=== PATIENT | female | born 1990 | race Caucasian/White ===

== ENCOUNTER 2017-04-13 21:44 | Inpatient (IN) | payer BC ==
[2017-04-13] MEDS ORDERED: Sodium Chloride 0.9% 10 ML Syringe FLUSH PRN (22:14)
[2017-04-13] MEDS ORDERED: Lactated Ringers 1,000 ML IV SCH (22:15)
[2017-04-13] MEDS ORDERED: Oxytocin/Lactated Ringers 10 UNIT/1,000 ML BAG IV SCH (22:15)
[2017-04-13] MEDS ORDERED: Oxytocin/Lactated Ringers 10 UNIT/1,000 ML BAG IV ONE (22:36)
[2017-04-13] MEDS ORDERED: Lidocaine 1% 50 ML MDV ONE (22:36)
--- NOTE | 2017-04-13 23:04 | PCM.LDHP ---
L&D History of Present Illness - General Date of Service: 04/13/17 Admit Problem/Dx: Patient Status Order with Admit Dx/Problem 04/13/17 22:14 Patient Status [ADT] Routine Admission Diagnosis/Problem Admission Diagnosis/Problem Source of Information: Patient History Limitations: Reports: No Limitations - History of Present Illness Introduction:: Patient is a 26 y/o who presented to L&D for labor. 5-6 cm on admission. No other issues. 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: 1 LMP (Approximate): Social & Family History - Tobacco Use Smoking Status *Q: Never Smoker Second Hand Smoke Exposure: No - Alcohol Use Alcohol Use History: No - Recreational Drug Use Recreational Drug Use: No H&P Review of Systems - Review of Systems: Review Of Systems: See Below General: Reports: No Symptoms Pulmonary: Reports: No Symptoms Cardiovascular: Reports: No Symptoms Gastrointestinal: Reports: No Symptoms Genitourinary: Reports: No Symptoms Musculoskeletal: Reports: No Symptoms L&D Exam - Exam Exam: See Below - Vital Signs Weight: 75.296 kg - OB Specific Contraction Intensity: Moderate Movement: Active Heart Tones: Present Heart Tones per Min: 145 Heart Rate (FHR) Variability: Moderate (6-25 bmp) Presentation: Vertex - Pfeiffer Score Pfeiffer Score Cervix Position: Anterior Pfeiffer Score Consistency: Soft Pfeiffer Score Effacement: >80% Pfeiffer Score Dilation: > 5 cm Pfeiffer Score 's Station: -1 ,0 Pfeiffer Score Total: 12 - Exam General: Alert, Oriented, Cooperative Abdomen: Soft Genitourinary: Normal external exam Extremities: Normal Inspection Skin: Warm, Dry, Intact - Patient Data Lab Results Last 24 hrs: Laboratory Results - last 24 hr 04/13/17 Range/Units 22:30 WBC 16.30 H (3.98-10.04) K/mm3 RBC 3.98 (3.98-5.22) M/mm3 Hgb 12.4 (11.2-15.7) gm/L Hct 35.8 (34.1-44.9) % MCV 89.9 (79.4-94.8) fl MCH 31.2 (25.6-32.2) pg MCHC 34.6 (32.2-35.5) g/dl RDW Std Deviation 41.7 (36.4-46.3) fL Plt Count 214 (182-369) K/mm3 MPV 11.4 (9.4-12.3) fl Result Diagrams: 04/13/17 22:30 - Problem List (1) 39 weeks gestation of SNOMED Code(s): 08958021 ICD Code: Z3A.39 - 39 WEEKS GESTATION OF Status: Acute Current Visit: Yes (2) GBS (group B Streptococcus carrier), +RV culture, currently SNOMED Code(s): 05677407, 035073489 ICD Code: O99.820 - STREPTOCOCCUS B CARRIER STATE COMPLICATING Status: Acute Current Visit: Yes (3) Normal labor SNOMED Code(s): 26142579 ICD Code: O80 - ENCOUNTER FOR FULL-TERM UNCOMPLICATED DELIVERY; Z37.9 - OUTCOME OF DELIVERY, UNSPECIFIED Status: Acute Current Visit: Yes Problem List Initiated/Reviewed/Updated: Yes Orders Last 24hrs: Active Orders 24 hr Category Date Time Status Patient Status [ADT] Routine ADT 04/13/17 22:14 Active Activity as Tolerated [RC] PFP Care 04/13/17 22:14 Active Communication Order [RC] ASDIRECTED Care 04/13/17 22:14 Active Heart Tones [RC] ASDIRECTED Care 04/13/17 22:14 Active Notify Provider [RC] PFP Care 04/13/17 22:14 Active Notify Provider [RC] PRN Care 04/13/17 22:14 Active Peripheral IV Care [RC] . DIRECTED Care 04/13/17 22:14 Active Vital Signs [RC] PER UNIT ROUTINE Care 04/13/17 22:14 Active TYPE AND SCREEN [BBK] Stat Lab 04/13/17 22:30 Received Lactated Ringers [Ringers, Lactated] 1,000 ml Med 04/13/17 22:15 Active IV ASDIRECTED Oxytocin/Lactated Ringers [Pitocin in LR 10 Units/1,000 Med 04/13/17 22:15 Active ML] 10 unit in 1,000 ml IV TITRATE Sodium Chloride 0.9% [Saline Flush] Med 04/13/17 22:14 Active 10 ml FLUSH ASDIRECTED PRN Vancomycin [Vancocin] 1 gm Med 04/13/17 22:00 Active Sodium Chloride 0.9% [Normal Saline] 250 ml IV Q12H Electronic Heart Tones Ext w TOCO [WOMSER] Ot 04/13/17 22:14 Ordered Routine Electronic Heart Tones Internal [WOMSER] Per Unit Ot 04/13/17 22:14 Ordered Routine Peripheral IV Insertion Adult [OM.PC] Routine Ot 04/13/17 22:14 Ordered Resuscitation Status Routine Resus Stat 04/13/17 22:14 Ordered Medication Orders Lactated Ringer's (Ringers, Lactated) 1,000 mls @ 100 mls/hr IV ASDIRECTED JANUSZ Oxytocin/Lactated Ringer's (Pitocin In Lr 10 Units/1,000 Ml) 10 unit in 1,000 mls @ 500 mls/hr IV TITRATE JANUSZ PRN Reason: Protocol Vancomycin HCl 1 gm/ Sodium (Chloride) 250 mls @ 250 mls/hr IV Q12H JANUSZ Sodium Chloride (Saline Flush) 10 ml FLUSH ASDIRECTED PRN PRN Reason: Keep Vein Open Assessment/Plan Comment:: 26 y/o at 39 2/7 wks who presented in labor - shortly after presenting patient complete. I presented in time for delivery. See separate delivery note. Patient was GBS positive. Vancomycin infusion started, but not completed.
--- NOTE | 2017-04-13 23:10 | PCM.DEL ---
L & D Note - General Info Date of Service: 04/13/17 - Delivery Note Labor: spontaneous Delivery Outcome: Livebirth Delivery Method: Spontaneous Vaginal Delivery Delivery Mode: Spontaneous Presentation: Right Occiput Anterior (TRE) Nuchal Cord: None Anesthesia Type: None Amniotic Fluid Description: Clear Episiotomy Type: None Laceration: 1st degree (hemostatic and so not repaired) Placenta: intact, spontaneous Cord: 3 vessels Estimated Blood Loss: 300 Resuscitation Needed: Yes : Suctioned, Bulb Syringe, Stimulated, Warmed, [place] Used, Warmer Used Delivery Comments (Free Text/Narrative):: Patient completed with ROM right before I presented. With maternal pushing effort head delivered from an TRE presentation. No nuchal cord present. With gentle downward traction the shoulders and body delivered. placed on maternal abdomen. Cord clamped and cut. Cord blood obtained. Placenta allowed time to separate and then expelled. Inspection of the perineum showed a small 1st degree laceration which was hemostatic and so not repaired. - Patient Data Weight - most recent: 75.296 kg Lab Results last 24 hrs: Laboratory Results - last 24 hr 04/13/17 Range/Units 22:30 WBC 16.30 H (3.98-10.04) K/mm3 RBC 3.98 (3.98-5.22) M/mm3 Hgb 12.4 (11.2-15.7) gm/L Hct 35.8 (34.1-44.9) % MCV 89.9 (79.4-94.8) fl MCH 31.2 (25.6-32.2) pg MCHC 34.6 (32.2-35.5) g/dl RDW Std Deviation 41.7 (36.4-46.3) fL Plt Count 214 (182-369) K/mm3 MPV 11.4 (9.4-12.3) fl Med Orders - Current: Current Medications Lactated Ringer's (Ringers, Lactated) 1,000 mls @ 100 mls/hr IV ASDIRECTED JANUSZ Oxytocin/Lactated Ringer's (Pitocin In Lr 10 Units/1,000 Ml) 10 unit in 1,000 mls @ 500 mls/hr IV TITRATE JANUSZ PRN Reason: Protocol Vancomycin HCl 1 gm/ Sodium (Chloride) 250 mls @ 250 mls/hr IV Q12H JANUSZ Sodium Chloride (Saline Flush) 10 ml FLUSH ASDIRECTED PRN PRN Reason: Keep Vein Open Discontinued Medications Oxytocin/Lactated Ringer's (Pitocin In Lr 10 Units/1,000 Ml) Confirm Administered Dose 10 unit in 1,000 mls @ as directed IV .STK-MED ONE Stop: 04/13/17 22:37 Lidocaine HCl (Xylocaine 1%) Confirm Administered Dose 50 ml .ROUTE .STK-MED ONE Stop: 04/13/17 22:37 - Problem List & Annotations (1) 39 weeks gestation of SNOMED Code(s): 32092195 Code(s): Z3A.39 - 39 WEEKS GESTATION OF Status: Acute Current Visit: Yes (2) GBS (group B Streptococcus carrier), +RV culture, currently SNOMED Code(s): 30995254, 161622991 Code(s): O99.820 - STREPTOCOCCUS B CARRIER STATE COMPLICATING Status: Acute Current Visit: Yes (3) Normal labor SNOMED Code(s): 30464248 Code(s): O80 - ENCOUNTER FOR FULL-TERM UNCOMPLICATED DELIVERY; Z37.9 - OUTCOME OF DELIVERY, UNSPECIFIED Status: Acute Current Visit: Yes - Problem List Review Problem List Initiated/Reviewed/Updated: Yes - My Orders Last 24 Hours: My Active Orders 04/13/17 22:00 Vancomycin [Vancocin] 1 gm Sodium Chloride 0.9% [Normal Saline] 250 ml IV Q12H 04/13/17 22:14 Patient Status [ADT] Routine Activity as Tolerated [RC] PFP Communication Order [RC] ASDIRECTED Heart Tones [RC] ASDIRECTED Notify Provider [RC] PFP Notify Provider [RC] PRN Peripheral IV Care [RC] . DIRECTED Vital Signs [RC] PER UNIT ROUTINE Sodium Chloride 0.9% [Saline Flush] 10 ml FLUSH ASDIRECTED PRN Electronic Heart Tones Ext w TOCO [WOMSER] Routine Electronic Heart Tones Internal [WOMSER] Per Unit Routine Peripheral IV Insertion Adult [OM.PC] Routine Resuscitation Status Routine 04/13/17 22:15 Lactated Ringers [Ringers, Lactated] 1,000 ml IV ASDIRECTED Oxytocin/Lactated Ringers [Pitocin in LR 10 Units/1,000 ML] 10 unit in 1,000 ml IV TITRATE 04/13/17 22:30 TYPE AND SCREEN [BBK] Stat 04/13/17 23:05 Patient Status Manage Transfer [TRANSFER] Routine - Assessment Assessment:: 26 y/o G2 now P2 PPD#0 from at 39 2/7 wks - Plan Plan:: * Routine cares * Encourage breast feeding * Discharge home in 2 days
[2017-04-13] MEDS ORDERED: Acetaminophen 325 MG Tab PO PRN (23:24)
[2017-04-13] MEDS ORDERED: Lanolin 100% Cream 7 GM Tube TOP PRN (23:24)
[2017-04-13] MEDS ORDERED: Benzocaine/Menthol 20%-0.5% Spray 56 GM Canister TOP PRN (23:24)
[2017-04-13] MEDS ORDERED: Witch Hazel Medicated Pads 100/Jar TOP PRN (23:24)
[2017-04-13] MEDS ORDERED: Docusate Sodium 100 MG Cap PO PRN (23:24)
[2017-04-14] MEDS: Ibuprofen 600 MG Tab PO PRN ×4 (00:41→20:37)
[2017-04-14] MEDS ORDERED: Oxytocin/Lactated Ringers 10 UNIT/1,000 ML BAG IV SCH (00:45)
--- NOTE | 2017-04-14 07:23 | PCM.PNPP ---
- General Info Date of Service: 04/14/17 Functional Status: Reports: pain controlled, tolerating diet, ambulating, urinating - Review of Systems General: Reports: No Symptoms Pulmonary: Reports: no symptoms Cardiovascular: Reports: No Symptoms Gastrointestinal: Reports: No symptoms Genitourinary: Reports: no symptoms Musculoskeletal: Reports: no symptoms - Patient Data Vital Signs - most recent: Last Vital Signs Temp 36.8 C 04/14/17 03:31 Pulse 72 04/14/17 03:31 Resp 16 04/14/17 03:31 BP 111/76 04/14/17 03:31 Pulse Ox 100 04/14/17 03:31 Weight - most recent: 75.296 kg Lab Results - last 24 hrs: Laboratory Results - last 24 hr 04/13/17 04/13/17 04/14/17 Range/Units 22:30 22:30 03:40 WBC 16.30 H (3.98-10.04) K/mm3 RBC 3.98 (3.98-5.22) M/mm3 Hgb 12.4 (11.2-15.7) gm/L Hct 35.8 (34.1-44.9) % MCV 89.9 (79.4-94.8) fl MCH 31.2 (25.6-32.2) pg MCHC 34.6 (32.2-35.5) g/dl RDW Std Deviation 41.7 (36.4-46.3) fL Plt Count 214 (182-369) K/mm3 MPV 11.4 (9.4-12.3) fl Blood Type O NEGATIVE O NEGATIVE Gel Antibody Screen Positive Positive Screen 0 ros/5 flds - neg RhIG Candidate? Yes Rhogam Indicated Yes, baby rh pos H Med Orders - Current: Current Medications Acetaminophen (Tylenol) 650 mg PO Q4H PRN PRN Reason: mild pain or fever Benzocaine/Menthol (Dermoplast Pain Relief [place]) 0 gm TOP ASDIRECTED PRN PRN Reason: Perineal Comfort Measure Last Admin: 04/14/17 00:39 Dose: 1 can Docusate Sodium (Colace) 100 mg PO BID PRN PRN Reason: Constipation Emollient Ointment (Lansinoh Hpa) 0 gm TOP ASDIRECTED PRN PRN Reason: Sore Nipples Oxytocin/Lactated Ringer's (Pitocin In Lr 10 Units/1,000 Ml) 10 unit in 1,000 mls @ 500 mls/hr IV ASDIRECTED [facility] Last Admin: 04/13/17 22:45 Dose: 500 mls/hr Ibuprofen (Motrin) 600 mg PO Q6H PRN PRN Reason: Mild pain or fever Last Admin: 04/14/17 00:41 Dose: 600 mg Witch Umu (Tucks) 1 pad TOP ASDIRECTED PRN PRN Reason: Hemorrhoid pain Last Admin: 04/14/17 00:39 Dose: 1 container Discontinued Medications Lactated Ringer's (Ringers, Lactated) 1,000 mls @ 100 mls/hr IV ASDIRECTED [facility] Last Admin: 04/13/17 22:25 Dose: 999 mls/hr Oxytocin/Lactated Ringer's (Pitocin In Lr 10 Units/1,000 Ml) 10 unit in 1,000 mls @ 500 mls/hr IV TITRATE [facility] PRN Reason: Protocol Vancomycin HCl 1 gm/ Sodium (Chloride) 250 mls @ 250 mls/hr IV Q12H [facility] Last Admin: 04/13/17 22:35 Dose: 250 mls/hr Oxytocin/Lactated Ringer's (Pitocin In Lr 10 Units/1,000 Ml) Confirm Administered Dose 10 unit in 1,000 mls @ as directed IV .STK-MED ONE Stop: 04/13/17 22:37 Last Admin: 04/14/17 06:23 Dose: Not Given Lidocaine HCl (Xylocaine 1%) Confirm Administered Dose 50 ml .ROUTE .STK-MED ONE Stop: 04/13/17 22:37 Last Admin: 04/14/17 06:23 Dose: Not Given Sodium Chloride (Saline Flush) 10 ml FLUSH ASDIRECTED PRN PRN Reason: Keep Vein Open - Infant Interaction Disposition, : to Nursery Infant Interaction: Not Applicable Feeding: Attempted ; Nursed Fair/Poor Support Person: - Recovery Exam Fundal Tone: Firm Fundal Level: 1 Fingerbreadths Below Umbilicus Fundal Placement: Midline Lochia Amount: Small, Moderate Perineum Description: Edematous Episiotomy/Laceration: Approximated Bladder Status: Voiding Urinary Elimination: Voided - Exam General: alert, oriented, cooperative Abdomen: soft, no tenderness Extremities: no edema Skin: warm, dry, intact - Problem List & Annotations (1) 39 weeks gestation of SNOMED Code(s): 47177530 Code(s): Z3A.39 - 39 WEEKS GESTATION OF Status: Acute Current Visit: Yes (2) GBS (group B Streptococcus carrier), +RV culture, currently SNOMED Code(s): 30221614, 841463687 Code(s): O99.820 - STREPTOCOCCUS B CARRIER STATE COMPLICATING Status: Acute Current Visit: Yes (3) Normal labor SNOMED Code(s): 48141597 Code(s): O80 - ENCOUNTER FOR FULL-TERM UNCOMPLICATED DELIVERY; Z37.9 - OUTCOME OF DELIVERY, UNSPECIFIED Status: Acute Current Visit: Yes (4) Vaginal delivery SNOMED Code(s): 341686500 Code(s): O80 - ENCOUNTER FOR FULL-TERM UNCOMPLICATED DELIVERY Status: Acute Current Visit: Yes - Problem List Review Problem List Initiated/Reviewed/Updated: Yes - My Orders Last 24 Hours: My Active Orders 04/13/17 22:14 Activity as Tolerated [RC] PFP Communication Order [RC] ASDIRECTED Heart Tones [RC] ASDIRECTED Notify Provider [RC] PFP Notify Provider [RC] PRN Peripheral IV Care [RC] . DIRECTED Vital Signs [RC] PER UNIT ROUTINE Resuscitation Status Routine 04/13/17 22:30 ANTIBODY IDENTIFICATION [BBK] Stat TYPE AND SCREEN [BBK] Stat 04/13/17 23:24 Activity as Tolerated [RC] PER UNIT ROUTINE Vital Signs [RC] 04,12,20 Acetaminophen [Tylenol] 650 mg PO Q4H PRN Benzocaine/Menthol [Dermoplast Pain Relief [place]] See Dose Instructions TOP ASDIRECTED PRN Docusate Sodium [Colace] 100 mg PO BID PRN Ibuprofen [Motrin] 600 mg PO Q6H PRN Lanolin [Lansinoh HPA] See Dose Instructions TOP ASDIRECTED PRN Witch Umu [Tucks] 1 pad TOP ASDIRECTED PRN Assess Lochia [WOMSER] Per Unit Routine Assess Uterine Involution [WOMSER] Per Unit Routine Breast Pump [WOMSER] Per Unit Routine Heat Therapy [OM.PC] PRN Ice Therapy [OM.PC] Per Unit Routine Perineal Care [OM.PC] Per Unit Routine Peripheral IV Discontinue [OM.PC] Routine Sitz Bath [OM.PC] Per Unit Routine 04/14/17 00:45 Oxytocin/Lactated Ringers [Pitocin in LR 10 Units/1,000 ML] 10 unit in 1,000 ml IV ASDIRECTED 04/14/17 03:40 SCREEN [BBK] Routine RH IMMUNE GLOBULIN [BBK] Routine RHOGAM, [RHIG WORKUP, ] [BBK] Routine 04/14/17 23:24 Heat Therapy [OM.PC] PRN - Assessment Assessment:: 26 y/o G2 now P2 PPD#1 from at 39 2/7 wks - Plan Plan:: * Routine cares * Encourage breast feeding * Discharge home today vs tomorrow
[2017-04-14] MEDS: Levothyroxine 112 MCG Tab PO SCH (12:00)
[2017-04-15] MEDS: Levothyroxine 112 MCG Tab PO SCH (06:19)
[2017-04-15] MEDS: Ibuprofen 600 MG Tab PO PRN (06:19)
--- NOTE | 2017-04-15 07:08 | PCM.DCSUM1 ---
Discharge Summary - Discharge Data Discharge Date: 04/15/17 Discharge Disposition: Home, Self-Care 01 Condition: Good - Discharge Diagnosis/Problem(s) (1) 39 weeks gestation of SNOMED Code(s): 04258260 ICD Code: Z3A.39 - 39 WEEKS GESTATION OF Status: Acute Current Visit: Yes (2) GBS (group B Streptococcus carrier), +RV culture, currently SNOMED Code(s): 08957802, 569170155 ICD Code: O99.820 - STREPTOCOCCUS B CARRIER STATE COMPLICATING Status: Acute Current Visit: Yes (3) Normal labor SNOMED Code(s): 32608948 ICD Code: O80 - ENCOUNTER FOR FULL-TERM UNCOMPLICATED DELIVERY; Z37.9 - OUTCOME OF DELIVERY, UNSPECIFIED Status: Acute Current Visit: Yes (4) Vaginal delivery SNOMED Code(s): 517836586 ICD Code: O80 - ENCOUNTER FOR FULL-TERM UNCOMPLICATED DELIVERY Status: Acute Current Visit: Yes (5) Rh negative state in antepartum period SNOMED Code(s): 139019242, 830520623 ICD Code: O09.899 - SUPERVISION OF OTHER HIGH RISK PREGNANCIES, UNSP TRIMESTER Status: Acute Current Visit: Yes Qualifiers: Trimester: third trimester Qualified Code(s): O09.893 - Supervision of other high risk pregnancies, third trimester - Patient Summary/Data Complications: None Consults: None Recommended Follow-up Testing/Procedures: Follow up in 5-6 weeks for check Hospital Course: 26-year-old woman presented at 39-2/7 weeks gestation in active labor. She progressed rapidly and delivered within 45 minutes of initial presentation to the hospital. See delivery note for full details. she did well and was discharged home on day #2. - Patient Instructions Diet: Regular Diet as Tolerated Activity: As Tolerated Activity, Other: Pelvic Rest for 6 weeks Driving: May Drive Today Showering/Bathing: May Shower Showering/Bathing, Other: May Bathe Notify Provider of: Fever, Increased Pain, Swelling and Redness, Drainage, Nausea and/or Vomiting - Discharge Plan Home Medications: Home Meds Pnv with Ca,No.71/Iron/Fa [ Vitamin Tablet] 1 tab PO DAILY 04/19/15 [ History] Ibuprofen [IJD: Ibuprofen] 600 mg PO Q6H PRN #0 tablet 04/14/17 [Rx] Levothyroxine Sodium 112 mcg PO DAILY 04/14/17 [History] Patient Handouts: Mastitis, [id number], and Mastitis, Vaginal Delivery, Care After, Breast Pumping Tips, [id number] Referrals: Kami Felder MD [Physician] - (5-6 weeks for check ) - Discharge Summary/Plan Comment DC Time >30 min.: No - Patient Data Vitals - Most Recent: Last Vital Signs Temp 36.9 C 04/15/17 04:27 Pulse 82 04/15/17 04:00 Resp 16 04/15/17 04:27 BP 116/82 04/15/17 04:27 Pulse Ox 99 04/15/17 04:00 Weight - Most Recent: 75.296 kg Lab Results - Last 24 hrs: Laboratory Results - last 24 hr 04/14/17 Range/Units 03:40 Blood Type O NEGATIVE Gel Antibody Screen Positive Screen 0 ros/5 flds - neg RhIG Candidate? Yes Rhogam Indicated Yes, baby rh pos H Med Orders - Current: Current Medications Acetaminophen (Tylenol) 650 mg PO Q4H PRN PRN Reason: mild pain or fever Last Admin: 04/14/17 09:50 Dose: 650 mg Benzocaine/Menthol (Dermoplast Pain Relief [place]) 0 gm TOP ASDIRECTED PRN PRN Reason: Perineal Comfort Measure Last Admin: 04/14/17 00:39 Dose: 1 can Docusate Sodium (Colace) 100 mg PO BID PRN PRN Reason: Constipation Last Admin: 04/15/17 06:19 Dose: 100 mg Emollient Ointment (Lansinoh Hpa) 0 gm TOP ASDIRECTED PRN PRN Reason: Sore Nipples Oxytocin/Lactated Ringer's (Pitocin In Lr 10 Units/1,000 Ml) 10 unit in 1,000 mls @ 500 mls/hr IV ASDIRECTED JANUSZ Last Admin: 04/13/17 22:45 Dose: 500 mls/hr Ibuprofen (Motrin) 600 mg PO Q6H PRN PRN Reason: Mild pain or fever Last Admin: 04/15/17 06:19 Dose: 600 mg Levothyroxine Sodium (Levothyroxine) 112 mcg PO ACBREAKFAST JANUSZ Last Admin: 04/15/17 06:19 Dose: 112 mcg Colin Sanz (Tucks) 1 pad TOP ASDIRECTED PRN PRN Reason: Hemorrhoid pain Last Admin: 04/14/17 00:39 Dose: 1 container Discontinued Medications Lactated Ringer's (Ringers, Lactated) 1,000 mls @ 100 mls/hr IV ASDIRECTED JANUSZ Last Admin: 04/13/17 22:25 Dose: 999 mls/hr Oxytocin/Lactated Ringer's (Pitocin In Lr 10 Units/1,000 Ml) 10 unit in 1,000 mls @ 500 mls/hr IV TITRATE JANUSZ PRN Reason: Protocol Vancomycin HCl 1 gm/ Sodium (Chloride) 250 mls @ 250 mls/hr IV Q12H [facility] Last Admin: 04/13/17 22:35 Dose: 250 mls/hr Oxytocin/Lactated Ringer's (Pitocin In Lr 10 Units/1,000 Ml) Confirm Administered Dose 10 unit in 1,000 mls @ as directed IV .STK-MED ONE Stop: 04/13/17 22:37 Last Admin: 04/14/17 06:23 Dose: Not Given Lidocaine HCl (Xylocaine 1%) Confirm Administered Dose 50 ml .ROUTE .STK-MED ONE Stop: 04/13/17 22:37 Last Admin: 04/14/17 06:23 Dose: Not Given Sodium Chloride (Saline Flush) 10 ml FLUSH ASDIRECTED PRN PRN Reason: Keep Vein Open *Q Meaningful Use (DIS) - VTE *Q VTE Criteria *Q: - Stroke *Q Stroke Criteria *Q: - AMI *Q AMI Criteria *Q:
--- NOTE | 2017-04-15 07:08 | PCM.PNPP ---
- General Info Date of Service: 04/15/17 Functional Status: Reports: pain controlled, tolerating diet, ambulating, urinating - Review of Systems General: Reports: No Symptoms Pulmonary: Reports: no symptoms Cardiovascular: Reports: No Symptoms Gastrointestinal: Reports: No symptoms Genitourinary: Reports: no symptoms Musculoskeletal: Reports: no symptoms - Patient Data Vital Signs - most recent: Last Vital Signs Temp 36.9 C 04/15/17 04:27 Pulse 82 04/15/17 04:00 Resp 16 04/15/17 04:27 BP 116/82 04/15/17 04:27 Pulse Ox 99 04/15/17 04:00 Weight - most recent: 75.296 kg Lab Results - last 24 hrs: Laboratory Results - last 24 hr 04/14/17 Range/Units 03:40 Blood Type O NEGATIVE Gel Antibody Screen Positive Screen 0 ros/5 flds - neg RhIG Candidate? Yes Rhogam Indicated Yes, baby rh pos H Med Orders - Current: Current Medications Acetaminophen (Tylenol) 650 mg PO Q4H PRN PRN Reason: mild pain or fever Last Admin: 04/14/17 09:50 Dose: 650 mg Benzocaine/Menthol (Dermoplast Pain Relief [place]) 0 gm TOP ASDIRECTED PRN PRN Reason: Perineal Comfort Measure Last Admin: 04/14/17 00:39 Dose: 1 can Docusate Sodium (Colace) 100 mg PO BID PRN PRN Reason: Constipation Last Admin: 04/15/17 06:19 Dose: 100 mg Emollient Ointment (Lansinoh Hpa) 0 gm TOP ASDIRECTED PRN PRN Reason: Sore Nipples Oxytocin/Lactated Ringer's (Pitocin In Lr 10 Units/1,000 Ml) 10 unit in 1,000 mls @ 500 mls/hr IV ASDIRECTED JANUSZ Last Admin: 04/13/17 22:45 Dose: 500 mls/hr Ibuprofen (Motrin) 600 mg PO Q6H PRN PRN Reason: Mild pain or fever Last Admin: 04/15/17 06:19 Dose: 600 mg Levothyroxine Sodium (Levothyroxine) 112 mcg PO ACBREAKFAST JANUSZ Last Admin: 04/15/17 06:19 Dose: 112 mcg Witch Umu (Tucks) 1 pad TOP ASDIRECTED PRN PRN Reason: Hemorrhoid pain Last Admin: 04/14/17 00:39 Dose: 1 container Discontinued Medications Lactated Ringer's (Ringers, Lactated) 1,000 mls @ 100 mls/hr IV ASDIRECTED JANUSZ Last Admin: 04/13/17 22:25 Dose: 999 mls/hr Oxytocin/Lactated Ringer's (Pitocin In Lr 10 Units/1,000 Ml) 10 unit in 1,000 mls @ 500 mls/hr IV TITRATE JANUSZ PRN Reason: Protocol Vancomycin HCl 1 gm/ Sodium (Chloride) 250 mls @ 250 mls/hr IV Q12H [facility] Last Admin: 04/13/17 22:35 Dose: 250 mls/hr Oxytocin/Lactated Ringer's (Pitocin In Lr 10 Units/1,000 Ml) Confirm Administered Dose 10 unit in 1,000 mls @ as directed IV .STK-MED ONE Stop: 04/13/17 22:37 Last Admin: 04/14/17 06:23 Dose: Not Given Lidocaine HCl (Xylocaine 1%) Confirm Administered Dose 50 ml .ROUTE .STK-MED ONE Stop: 04/13/17 22:37 Last Admin: 04/14/17 06:23 Dose: Not Given Sodium Chloride (Saline Flush) 10 ml FLUSH ASDIRECTED PRN PRN Reason: Keep Vein Open - Interaction Infant Disposition, : to Nursery Interaction: Not Applicable Infant Feeding: Breastfed Infant; Nursed Well Support Person: - Recovery Exam Fundal Tone: Firm Fundal Level: 2 Fingerbreadths Below Umbilicus Fundal Placement: Midline Lochia Amount: Small Lochia Color: Rubra/Red Perineum Description: Intact, Minimal Bruising/Swelling Episiotomy/Laceration: Approximated Bladder Status: Voiding Urinary Elimination: Voided - Exam General: alert, oriented, cooperative Abdomen: soft, no tenderness Extremities: no edema Skin: warm, dry, intact - Problem List & Annotations (1) 39 weeks gestation of SNOMED Code(s): 40616584 Code(s): Z3A.39 - 39 WEEKS GESTATION OF Status: Acute Current Visit: Yes (2) GBS (group B Streptococcus carrier), +RV culture, currently SNOMED Code(s): 58444067, 047703372 Code(s): O99.820 - STREPTOCOCCUS B CARRIER STATE COMPLICATING Status: Acute Current Visit: Yes (3) Normal labor SNOMED Code(s): 27926913 Code(s): O80 - ENCOUNTER FOR FULL-TERM UNCOMPLICATED DELIVERY; Z37.9 - OUTCOME OF DELIVERY, UNSPECIFIED Status: Acute Current Visit: Yes (4) Vaginal delivery SNOMED Code(s): 036826705 Code(s): O80 - ENCOUNTER FOR FULL-TERM UNCOMPLICATED DELIVERY Status: Acute Current Visit: Yes (5) Rh negative state in antepartum period SNOMED Code(s): 797931215, 971498825 Code(s): O09.899 - SUPERVISION OF OTHER HIGH RISK PREGNANCIES, UNSP TRIMESTER Status: Acute Current Visit: Yes Qualifiers: Trimester: third trimester Qualified Code(s): O09.893 - Supervision of other high risk pregnancies, third trimester - Problem List Review Problem List Initiated/Reviewed/Updated: Yes - Assessment Assessment:: 26 y/o G2 now P2 PPD#2 from at 39 2/7 wks - Plan Plan:: * Routine cares * Encourage breast feeding * Rh negative, baby Rh positive. Received Rhogam yesterday * Discharge home today
[2017-04-15 13:24] VITALS: BP 107/76
== END 2017-04-15 13:59 | disposition home or self-care (01) | DRG 560 ==
LOC: JD.OBCHECK 21:44 → JD.OB 21:49 → JD.OBCHECK 22:14 → OBSVTOIN 22:45 → JD.OB 22:45
PROVIDERS: ADMIT Obstetrics & Gynecology; ATTEND Obstetrics & Gynecology
PROC: 10E0XZZ Delivery of Products of Conception, External Approach (ICD-10-PCS; principal; 2017-04-13)
PROC: 0HQ9XZZ Repair Perineum Skin, External Approach (ICD-10-PCS; 2017-04-13)
DX: O99.824 Streptococcus B carrier state complicating childbirth (principal); O70.0 First degree perineal laceration during delivery; O42.02 Full-term premature rupture of membranes, onset of labor within 24 hours of rupture; Z3A.39 39 weeks gestation of pregnancy; Z37.0 Single live birth; Z88.0 Allergy status to penicillin
CPT/HCPCS: 36415; 85027; 85461; 86850; 86870; 86900; 86901; A9270-GY; J2590; J2790; J3370; J7050; J7120

== ENCOUNTER 2020-04-22 05:40 | Inpatient (IN) | payer BC ==
[2020-04-22] MEDS ORDERED: ceFAZolin/Dextrose,Iso-Osmotic 2 GM/50 ML Duplex Bag IV ONE (11:28)
[2020-04-22] MEDS ORDERED: Lactated Ringers 1,000 ML IV SCH (11:31)
[2020-04-22] MEDS ORDERED: ceFAZolin 2 GM in Premix Bag 1 BAG IV ONE (11:31)
[2020-04-22] MEDS ORDERED: Sodium Chloride 0.9% 10 ML Syringe FLUSH PRN (11:31)
[2020-04-22] MEDS ORDERED: Nalbuphine 10 MG/ML Syringe IVPUSH PRN (11:31)
[2020-04-22] MEDS ORDERED: Oxytocin/Lactated Ringers 10 UNIT/1,000 ML BAG IV SCH ×2 (11:31→19:36)
--- NOTE | 2020-04-22 11:37 | PCM.LDHP ---
<Merary Irwin - Last Filed: 04/22/20 11:30> L&D History of Present Illness - General Date of Service: 04/22/20 Admit Problem/Dx: Patient Status Order with Admit Dx/Problem 04/22/20 05:51 Patient Status [ADT] Routine Admission Diagnosis/Problem Admission Diagnosis/Problem Gestational hypertension Source of Information: Patient History Limitations: Reports: No Limitations - History of Present Illness Introduction:: Radha Guzman is a 29-year-old at estimated gestational age of 38 weeks and 0 days, with an CHANELLE of 05/06/2020, who is admitted to the labor and delivery unit for gestational hypertension. Present Illness Comments:: Radha Guzman is a 29-year-old at estimated gestational age of 38 weeks and 0 days, with an CHANELLE of 05/06/2020, who is admitted to the labor and delivery unit for gestational hypertension. She began having contractions around 3:00 am today; they progressed from 7 minutes apart to 5 minutes apart, which prompted her to present to labor and delivery. Upon arrival, she was noted to have elevated blood pressure readings at 139/86 and 139/101, which has ultimately caused her to be admitted for delivery of the fetus due to gestational hypertension. She is allergic to penicillins. She has a past medical history of h ypothyroidism, for which she takes 137 mcg of Levothyroxine (she did take her dose this morning). She also states she has a past medical history of migraines. OBGYN History: This is her fourth . She has two live children, both born at 39 weeks; one born in 2014 (with an epidural) and one born in 2016 (no anesthesia) by [facility]. She had one spontaneous at a gestational age of 14 weeks in April 2019. She had normal menarche at age 13 and her cycles last 28 days. Course: Her LMP was 07/31/2019. She started her at a weight of 133.2 and her weight on 04/19/2020 was 157, for a total weight gain during of 23.8 pounds. Fundal heights and heart rates were appropriate throughout . Ultrasound performed on 12/20/2019 showed normal anatomy, appropriate development, and posterior placenta. Anti-D immune globulin was given on 02/10/2020. She did have occasional [place] contractions starting in February 2020. Vital signs remained stable until 04/19/2020, when her blood pressure reading at an clinic OB check was 132/82. The plan going forward was to monitor her blood pressure closely. She presented to L&D in the early hours of this morning for contractions that she felt were becoming more regular, and she was noted to have elevated blood pressures today, which is why it was ultimately decided that she be admitted and delivery today 04/22/2020 for gestational hypertension. She denies visual disturbances, blurry vision, and epigastric pain. She does have a headache behind her left eye that she rates as a 2/10 on the pain scale, which started around 3:00 am this morning. She states this has been able to be relieved with Tylenol. TSH was monitored throughout , and levothyroxine was titrated ap propriately. Initial labs on 09/29/2019: Blood type: O negative Antibody screen: negative Hemoglobin: 13.7 g/dl Hematocrit: 40.3% Platelet count: 231 10*3/uL Rubella immune RPR nonreactive Hepatitis B surface antigen negative HIV negative Chlamydia and gonorrhea negative Second trimester labs on 02/10/2020 Hemoglobin: 12.5 g/dl Hematocrit: 37.3% Platelet count: 178 10*3/uL Fasting glucose: 93 04/06/2020: Group B strep: POSITIVE - Related Data Allergies/Adverse Reactions: Allergies Allergy/AdvReac Type Severity Reaction Status Date / Time Penicillins Allergy Hives Verified 04/22/20 09:24 Home Medications: Home Meds Levothyroxine [Synthroid] 100 mcg PO ACBREAKFAST 05/06/19 [History] No122/Iron/Folic Acid [ Multi Tablet] 1 each PO DAILY 05/06/19 [History] Past Medical History - Past Health History Medical/Surgical History: Denies Medical/Surgical History THIRD COOK History: Reports: , Spontaneous Neurological History: Reports: Migraines Endocrine/Metabolic History: Reports: Hypothyroidism - Infectious Disease History Infectious Disease History: Reports: Chicken Pox - Past Surgical History HEENT Surgical History: Reports: Oral Surgery Social & Family History - Family History Cardiac: Reports: Hypertension (Father) Endocrine/Metabolic: Reports: Hypothyroidism (Maternal grandmother) - Tobacco Use Smoking Status *Q: Never Smoker - Caffeine Use Caffeine Use: Reports: None - Alcohol Use Alcohol Use History: No - Recreational Drug Use Recreational Drug Use: No H&P Review of Systems - Review of Systems: Review Of Systems: See Below General: Reports: No Symptoms HEENT: Reports: Headaches (History of migraines; currently reports a small headache behind the left eye at a 2/10 pain scale that is relieved with Tylenol.) Pulmonary: Reports: No Symptoms Cardiovascular: Reports: No Symptoms Gastrointestinal: Reports: No Symptoms Genitourinary: Reports: No Symptoms Musculoskeletal: Reports: No Symptoms Skin: Reports: No Symptoms Psychiatric: Reports: No Symptoms Neurological: Reports: No Symptoms Hematologic/Lymphatic: Reports: No Symptoms Immunologic: Reports: No Symptoms L&D Exam - Exam Exam: See Below - Vital Signs Vital Signs: Last Vital Signs Temp 97.7 F 04/22/20 06:25 Pulse 71 04/22/20 06:25 Resp 14 04/22/20 06:25 BP 127/89 04/22/20 06:25 Pulse Ox 98 04/22/20 06:25 Weight: 71.214 kg - OB Specific Contraction Duration (sec): 15-20 seconds Contraction Frequency (min): Every 5-10 minutes Contraction Intensity: Mild to Moderate Movement: Active Heart Tones: Present Heart Tones per Min: 135 Heart Rate (FHR) Variability: Moderate (6-25 bmp) Estimated Weight: 6 pounds 3 ounces - Exam General: Alert, Oriented, Cooperative HEENT: Conjunctiva Clear, EACs Clear, EOMI, Hearing Intact, Mucosa Moist & [place], Normal Nasal Septum, Posterior Pharynx Clear, Pupils Equal, Pupils Reactive Neck: Supple, Trachea Midline, +2 Carotid Pulse wo Bruit, Full Range of Motion, Other (Thyroid nonelarged without nodules.) Lungs: Clear to Auscultation, Normal Respiratory Effort Cardiovascular: Regular Rate, Regular Rhythm, Normal S1, Normal S2 GI/Abdominal Exam: Normal Bowel Sounds, Non-Tender, No Abnormal Bruit, No Mass Rectal Exam: Deferred Back Exam: Normal Inspection, Full Range of Motion, Other (No CVA tenderness.) Extremities: Normal Inspection, Normal Range of Motion, Non-Tender, No Pedal Edema, Normal Capillary Refill Skin: Warm, Dry, Intact Neurological: Cranial Nerves Intact Psychiatric: Alert, Normal Affect, Normal Mood - Patient Data Lab Results Last 24 hrs: Laboratory Results - last 24 hr 04/22/20 04/22/20 04/22/20 Range/Units 06:34 06:50 06:50 WBC 10.50 H (3.98-10.04) K/mm3 RBC 4.26 (3.98-5.22) M/mm3 Hgb 13.2 (11.2-15.7) gm/dl Hct 38.9 (34.1-44.9) % MCV 91.3 (79.4-94.8) fl MCH 31.0 (25.6-32.2) pg MCHC 33.9 (32.2-35.5) g/dl RDW Std Deviation 41.9 (36.4-46.3) fL Plt Count 192 (182-369) K/mm3 MPV 12.1 (9.4-12.3) fl Neut % (Auto) 70.3 (34.0-71.1) % Lymph % (Auto) 21.0 (19.3-51.7) % [place] % (Auto) 6.7 (4.7-12.5) % Eos % (Auto) 1.4 (0.7-5.8) Baso % (Auto) 0.4 (0.1-1.2) % Neut # (Auto) 7.38 H (1.56-6.13) K/mm3 Lymph # (Auto) 2.21 (1.18-3.74) K/mm3 Bullock # (Auto) 0.70 H (0.24-0.36) K/mm3 Eos # (Auto) 0.15 (0.04-0.36) K/mm3 Baso # (Auto) 0.04 (0.01-0.08) K/mm3 Sodium 137 (136-145) mEq/L Potassium 3.6 (3.5-5.1) mEq/L Chloride 103 (98-107) mEq/L Carbon Dioxide 22 (21-32) mEq/L Anion Gap 15.6 H (5-15) BUN 10 (7-18) mg/dL Creatinine 0.8 (0.55-1.02) mg/dL Est Cr Clr Drug Dosing 104.67 mL/min Estimated GFR (MDRD) > 60 (>60) mL/min BUN/Creatinine Ratio 12.5 L (14-18) Glucose 74 (74-106) mg/dL Calcium 8.9 (8.5-10.1) mg/dL Total Bilirubin 1.0 (0.2-1.0) mg/dL AST 22 (15-37) U/L ALT 19 (14-59) U/L Alkaline Phosphatase 121 H (46-116) U/L Total Protein 7.0 (6.4-8.2) g/dl Albumin 3.0 L (3.4-5.0) g/dl Globulin 4.0 gm/dL Albumin/Globulin Ratio 0.8 L (1-2) Ur Random Creatinine < 13.0 L (30.0-125.0) mg/dL U Random Total Protein < 6.0 (0.0-11.8) mg/dL Protein/Creatinin Ratio TNP Result Diagrams: 04/22/20 06:50 04/22/20 06:50 Problem List Initiated/Reviewed/Updated: Yes Orders Last 24hrs: Active Orders 24 hr Category Date Time Status Patient Status Manage Transfer [TRANSFER] Routine ADT 04/22/20 11:11 Active Patient Status [ADT] Routine ADT 04/22/20 05:51 Active Non Stress Test [RC] PER UNIT ROUTINE Care 04/22/20 05:51 Active Vital Signs [RC] PER UNIT ROUTINE Care 04/22/20 05:51 Active Regular Diet [DIET] Diet 04/22/20 Breakfast Active Resuscitation Status Routine Resus Stat 04/22/20 05:51 Ordered Assessment/Plan Comment:: Radha Guzman is a 29-year-old at estimated gestational age of 38 weeks and 0 days, with an CHANELLE of 05/06/2020, who is admitted to the labor and delivery unit for gestational hypertension. Admit to labor and delivery: Darien Allen MD Diagnosis: ; Gestational hypertension; Hypothyroidism Stable condition Blood pressures will be taken every 30 minutes. Notify physician if blood pressure is > 160 systolic or > 100 diastolic. May ambulate as tolerated. Regular diet Allergies: Penicillins Start IV and begin infusing lactated ringers and Ancef. Medications: Start IV Ancef due to Group B positive status. 137 mcg PO of Levothyroxine/day (she has taken her home medication for today's dose on 04/22/2020). At this time, the patient is leaning towards Dr. Allen rupturing her membranes around 1600 HRS today to progress with labor. She will alert her nurse if she would like to proceed with IV Pitocin, but at this time she would like to try ru pturing her membranes and will then see how her contractions progress. At this time she does not desire an epidural at any point during labor. YONY Cueva-S 1221 HRS 04/22/2020 <Darien Allen - Last Filed: 04/22/20 16:25> L&D History of Present Illness - General Admit Problem/Dx: Patient Status Order with Admit Dx/Problem 04/22/20 11:31 Patient Status [ADT] Routine Admission Diagnosis/Problem Admission Diagnosis/Problem Gestational hypertension L&D Exam - Vital Signs Vital Signs: Last Vital Signs Temp 36.5 C 04/22/20 06:25 Pulse 71 04/22/20 06:25 Resp 14 04/22/20 06:25 BP 127/89 04/22/20 06:25 Pulse Ox 98 04/22/20 06:25 - Patient Data Lab Results Last 24 hrs: Laboratory Results - last 24 hr 04/22/20 04/22/20 04/22/20 Range/Units 06:34 06:50 06:50 WBC 10.50 H (3.98-10.04) K/mm3 RBC 4.26 (3.98-5.22) M/mm3 Hgb 13.2 (11.2-15.7) gm/dl Hct 38.9 (34.1-44.9) % MCV 91.3 (79.4-94.8) fl MCH 31.0 (25.6-32.2) pg MCHC 33.9 (32.2-35.5) g/dl RDW Std Deviation 41.9 (36.4-46.3) fL Plt Count 192 (182-369) K/mm3 MPV 12.1 (9.4-12.3) fl Neut % (Auto) 70.3 (34.0-71.1) % Lymph % (Auto) 21.0 (19.3-51.7) % [place] % (Auto) 6.7 (4.7-12.5) % Eos % (Auto) 1.4 (0.7-5.8) Baso % (Auto) 0.4 (0.1-1.2) % Neut # (Auto) 7.38 H (1.56-6.13) K/mm3 Lymph # (Auto) 2.21 (1.18-3.74) K/mm3 [place] # (Auto) 0.70 H (0.24-0.36) K/mm3 Eos # (Auto) 0.15 (0.04-0.36) K/mm3 Baso # (Auto) 0.04 (0.01-0.08) K/mm3 Sodium 137 (136-145) mEq/L Potassium 3.6 (3.5-5.1) mEq/L Chloride 103 (98-107) mEq/L Carbon Dioxide 22 (21-32) mEq/L Anion Gap 15.6 H (5-15) BUN 10 (7-18) mg/dL Creatinine 0.8 (0.55-1.02) mg/dL Est Cr Clr Drug Dosing 104.67 mL/min Estimated GFR (MDRD) > 60 (>60) mL/min BUN/Creatinine Ratio 12.5 L (14-18) Glucose 74 (74-106) mg/dL Calcium 8.9 (8.5-10.1) mg/dL Total Bilirubin 1.0 (0.2-1.0) mg/dL AST 22 (15-37) U/L ALT 19 (14-59) U/L Alkaline Phosphatase 121 H (46-116) U/L Total Protein 7.0 (6.4-8.2) g/dl Albumin 3.0 L (3.4-5.0) g/dl Globulin 4.0 gm/dL Albumin/Globulin Ratio 0.8 L (1-2) Ur Random Creatinine < 13.0 L (30.0-125.0) mg/dL U Random Total Protein < 6.0 (0.0-11.8) mg/dL Protein/Creatinin Ratio TNP SARS-CoV-2 RNA (RT-PCR) (NEGATIVE) 04/22/20 Range/Units 12:15 WBC (3.98-10.04) K/mm3 RBC (3.98-5.22) M/mm3 Hgb (11.2-15.7) gm/dl Hct (34.1-44.9) % MCV (79.4-94.8) fl MCH (25.6-32.2) pg MCHC (32.2-35.5) g/dl RDW Std Deviation (36.4-46.3) fL Plt Count (182-369) K/mm3 MPV (9.4-12.3) fl Neut % (Auto) (34.0-71.1) % Lymph % (Auto) (19.3-51.7) % [place] % (Auto) (4.7-12.5) % Eos % (Auto) (0.7-5.8) Baso % (Auto) (0.1-1.2) % Neut # (Auto) (1.56-6.13) K/mm3 Lymph # (Auto) (1.18-3.74) K/mm3 [place] # (Auto) (0.24-0.36) K/mm3 Eos # (Auto) (0.04-0.36) K/mm3 Baso # (Auto) (0.01-0.08) K/mm3 Sodium (136-145) mEq/L Potassium (3.5-5.1) mEq/L Chloride (98-107) mEq/L Carbon Dioxide (21-32) mEq/L Anion Gap (5-15) BUN (7-18) mg/dL Creatinine (0.55-1.02) mg/dL Est Cr Clr Drug Dosing mL/min Estimated GFR (MDRD) (>60) mL/min BUN/Creatinine Ratio (14-18) Glucose (74-106) mg/dL Calcium (8.5-10.1) mg/dL Total Bilirubin (0.2-1.0) mg/dL AST (15-37) U/L ALT (14-59) U/L Alkaline Phosphatase (46-116) U/L Total Protein (6.4-8.2) g/dl Albumin (3.4-5.0) g/dl Globulin gm/dL Albumin/Globulin Ratio (1-2) Ur Random Creatinine (30.0-125.0) mg/dL U Random Total Protein (0.0-11.8) mg/dL Protein/Creatinin Ratio SARS-CoV-2 RNA (RT-PCR) Negative (NEGATIVE) Result Diagrams: 04/22/20 06:50 04/22/20 06:50 - Problem List (1) 38 weeks gestation of SNOMED Code(s): 11746813 ICD Code: Z3A.38 - 38 WEEKS GESTATION OF Status: Acute Current Visit: Yes (2) Hypothyroidism affecting SNOMED Code(s): 060546290 ICD Code: O99.280 - ENDO, NUTRITIONAL AND METAB DISEASES COMP PREG, UNSP TRI; E03.9 - HYPOTHYROIDISM, UNSPECIFIED Status: Acute Current Visit: Yes (3) GBS (group B Streptococcus carrier), +RV culture, currently SNOMED Code(s): 3923022289017, 357409642, 0887424757747 ICD Code: O99.820 - STREPTOCOCCUS B CARRIER STATE COMPLICATING Status: Acute Current Visit: No (4) Rh negative state in antepartum period SNOMED Code(s): 867985247 ICD Code: O09.899 - SUPERVISION OF OTHER HIGH RISK PREGNANCIES, UNSP TRIMESTER Status: Acute Current Visit: No Problem List Initiated/Reviewed/Updated: Yes Orders Last 24hrs: Active Orders 24 hr Category Date Time Status Patient Status [ADT] Routine ADT 04/22/20 11:31 Active Activity as Tolerated [RC] PFP Care 04/22/20 11:31 Active Communication Order [RC] ASDIRECTED Care 04/22/20 11:31 Active Heart Tones [RC] ASDIRECTED Care 04/22/20 11:31 Active Non Stress Test [RC] PER UNIT ROUTINE Care 04/22/20 05:51 Active Notify Provider Vital Signs [RC] PRN Care 04/22/20 11:31 Active Notify Provider [RC] PFP Care 04/22/20 11:31 Active Notify Provider [RC] PRN Care 04/22/20 11:31 Active Peripheral IV Care [RC] . DIRECTED Care 04/22/20 11:31 Active Pump Management, Intrathecal [RC] ASDIRECTED Care 04/22/20 11:31 Active Vital Signs [RC] PER UNIT ROUTINE Care 04/22/20 11:31 Active Regular Diet [DIET] Diet 04/22/20 Breakfast Active RAPID PLASMA REAGIN,RPR [CHEM] Routine Lab 04/22/20 06:58 Received Acetaminophen [Tylenol] Med 04/22/20 15:43 Active 650 mg PO Q6H PRN Lactated Ringers [Ringers, Lactated] 1,000 ml Med 04/22/20 11:31 Active IV ASDIRECTED Levothyroxine Med 04/23/20 06:00 Ordered 150 mcg PO ACBREAKFAST Nalbuphine [Nubain] Med 04/22/20 11:31 Active 10 mg IVPUSH Q2H PRN Oxytocin/Lactated Ringers [Pitocin in LR 10 Units/1,000 Med 04/22/20 11:31 Active ML] 10 unit in 1,000 ml IV .CONTINUOUS Sodium Chloride 0.9% [Saline Flush] Med 04/22/20 11:31 Active 10 ml FLUSH ASDIRECTED PRN ceFAZolin [Ancef] 1 gm Med 04/22/20 20:00 Active Premix Bag 1 bag IV Q8H Electronic Heart Tones Ext w TOCO [WOMSER] Oth 04/22/20 11:31 Ordered Routine Electronic Heart Tones Internal [WOMSER] Per Unit Ot 04/22/20 11:31 Ordered Routine Peripheral IV Insertion Adult [OM.PC] Routine Ot 04/22/20 11:31 Ordered Resuscitation Status Routine Resus Stat 04/22/20 05:51 Ordered Medication Orders Acetaminophen (Tylenol) 650 mg PO Q6H PRN PRN Reason: Pain Last Admin: 04/22/20 16:16 Dose: 650 mg Documented by: [place] Lactated Ringer's (Ringers, Lactated) 1,000 mls @ 100 mls/hr IV ASDIRECTED JANUSZ Cefazolin Sodium/Dextrose 1 gm (/ Premix) 50 mls @ 100 mls/hr IV Q8H JANUSZ Oxytocin/Lactated Ringer's (Pitocin In Lr 10 Units/1,000 Ml) 10 unit in 1,000 mls @ 100 mls/hr IV .CONTINUOUS JANUSZ Levothyroxine Sodium (Levothyroxine) 150 mcg PO ACBREAKFAST JANUSZ Nalbuphine HCl (Nubain) 10 mg IVPUSH Q2H PRN PRN Reason: Pain Sodium Chloride (Saline Flush) 10 ml FLUSH ASDIRECTED PRN PRN Reason: Keep Vein Open Assessment/Plan Comment:: I have seen and evaluated the patient with the PA student and agree with her assessment and plan. Patient with gestational hypertension and should have induction of labor due to her mild range blood pressures. Close monitoring of blood pressures for severe range blood pressures which may need treatment. Patient is GBS positive and has a history of a penicillin allergy that is very mild with a rash as a child. We will use Ancef for GBS prophylaxis. We will plan to delay rupture of membranes until she has had 4 hours of the Ancef antibiotic given. Darien Allen MD 4:25 PM 04/22/2020
[2020-04-22] MEDS ORDERED: Acetaminophen 325 MG Tab PO PRN (15:43)
--- NOTE | 2020-04-22 16:31 | PCM.PNLD ---
Labor Progress Note - VS & Meds Vital Signs: Last Vital Signs Temp 36.5 C 04/22/20 06:25 Pulse 71 04/22/20 06:25 Resp 14 04/22/20 06:25 BP 127/89 04/22/20 06:25 Pulse Ox 98 04/22/20 06:25 Active Medications: Current Medications Acetaminophen (Tylenol) 650 mg PO Q6H PRN PRN Reason: Pain Last Admin: 04/22/20 16:16 Dose: 650 mg Documented by: Lactated Ringer's (Ringers, Lactated) 1,000 mls @ 100 mls/hr IV ASDIRECTED JANUSZ Cefazolin Sodium/Dextrose 1 gm (/ Premix) 50 mls @ 100 mls/hr IV Q8H JANUSZ Oxytocin/Lactated Ringer's (Pitocin In Lr 10 Units/1,000 Ml) 10 unit in 1,000 mls @ 100 mls/hr IV .CONTINUOUS JANUSZ Levothyroxine Sodium (Levothyroxine) 150 mcg PO ACBREAKFAST JANUSZ Nalbuphine HCl (Nubain) 10 mg IVPUSH Q2H PRN PRN Reason: Pain Sodium Chloride (Saline Flush) 10 ml FLUSH ASDIRECTED PRN PRN Reason: Keep Vein Open Discontinued Medications Cefazolin Sodium/Dextrose (Ancef) Confirm Administered Dose 2 gm IV .STK-MED ONE Stop: 04/22/20 11:29 Last Admin: 04/22/20 12:31 Dose: Not Given Documented by: Cefazolin Sodium/Dextrose 2 gm (/ Premix) 50 mls @ 100 mls/hr IV ONETIME ONE Stop: 04/22/20 12:00 Last Admin: 04/22/20 11:34 Dose: 100 mls/hr Documented by: - Uterine Contractions Uterine Monitoring Mode: External [place] Contraction Frequency (min): 5-15+ Contraction Duration (sec): 45-90 Contraction Intensity: Moderate to Strong - Monitoring Monitor Mode: Doppler/Auscultation Heart Rate (FHR) Baseline: 135 Heart Rate (FHR) Per Doppler: 135 Heart Rate (FHR) Variability: Moderate (6-25 bmp) Accelerations: Present, 15x15 Decelerations: Variable, Intermittent (<50% x 20 min) Strip Review: Category II - Vaginal Exam Dilation (cm): 6 Effacement (Percent): 90 Station: -1 Cervical Position: Anterior Sterile Vaginal Exam Performed By: Darien Allen Vaginal Exam Comment: Artificial rupture membranes performed with [place] with return of small amount of clear fluid. Mother and tolerated procedure without difficulty. - Labor Progress (Free Text) Labor Progress: Patient with cervical dilation since last exam from 4 cm on initial presentation to 6 cm at this time. Patient has made good progress despite irregular contraction pattern. Artificial rupture membranes performed with return of small amount of clear fluid. Mother and tolerated without difficulty Patient continues to have mild range blood pressures when she is awake. Blood pressures are in normal range when she is resting. Continue close monitoring of vital signs and for severe features of preeclampsia Continue Ancef for GBS prophylaxis We will plan to monitor contraction pattern for the next several hours to see if they will increase in frequency now with her membranes ruptured. If she does not have a regular contraction pattern I would recommend for her to start on Pitocin for augmentation of labor Anticipate vaginal delivery unless otherwise indicated Darien Allen MD 4:30 PM 04/22/2020
[2020-04-22] MEDS ORDERED: Oxytocin/Lactated Ringers 10 UNIT/1,000 ML BAG IV ONE (18:38)
[2020-04-22] MEDS ORDERED: Witch Hazel Medicated Pads 40/Jar TOP PRN (19:36)
[2020-04-22] MEDS ORDERED: Benzocaine/Menthol 20%-0.5% Spray 56 GM Canister TOP PRN (19:36)
[2020-04-22] MEDS ORDERED: Hydrocortisone Acetate 25 MG Supp RECTAL PRN (19:36)
[2020-04-22] MEDS ORDERED: Magnesium Hydroxide 400 MG/5 ML Susp 30 ML Cup PO PRN (19:36)
--- NOTE | 2020-04-22 19:39 | PCM.DEL ---
L & D Note - General Info Date of Service: 04/22/20 Mother's Due Date: 05/06/20 - Delivery Note Labor: Spontaneous, Augmented by ARM Delivery Outcome: Livebirth Delivery Method: Spontaneous Vaginal Delivery-Single Presentation: Right Occiput Anterior (TRE) Nuchal Cord: None Prep: Povidone-Iodine (Betadine Anesthesia Type: None Amniotic Fluid Description: Clear Episiotomy Type: None Laceration: Labial (right labial abrasion, hemostatic and not repaired) Placenta: Intact, Spontaneous Cord: 3 Vessels, True Knot Estimated Blood Loss: 200 Resuscitation Needed: No : Bulb Syringe, Stimulated, Warmed, Terry Used Provider: Darien Allen Score 1 min: 8 Score 5 min: 9 Second Stage Interventions: Reports: Pushing, Stirrups/Leg Supports Delivery Comments (Free Text/Narrative):: Stage I: Radha Guzman was admitted for medically indicated induction of labor in the setting of gestational hypertension. On admission her cervix was dilated to 4 cm which was unchanged from late last week. She was GBS positive and was started on Ancef for GBS prophylaxis. She received 1 total dose prior to delivery. When she first presented she had elevated blood pressures into the 130s to 140s/90s to low 100s that were persistent over the course of 4 hours. Decision was made to proceed with induction of labor. She was sheryl irregularly which is what brought her in for evaluation. She was monitored with her contractions and was making appropriate change without any augmentation. She had artificial rupture of membranes with return of a small amount of clear fluid. She progressed to complete and pushing. Stage II: On 04/22/2020 she had a normal vaginal delivery of a live male infant at 18:52. Apgars of 8 & 9. Measurements not available at the time of the note. There was no nuchal cord. There was a true knot present in the cord at time of delivery. was delivered in TRE position. The cord was doubly clamped and cut by father the . was placed on mother's abdomen. Stage III: She had a spontaneous delivery of an intact placenta in Amandeep presentation. Three vessel cord. She was given pitocin and fundal massage. She had a right labial abrasion that was hemostatic and not repaired. Mom and baby were stable to recovery. EBL of 200 mL. Darien Allen MD 7:36 PM 04/22/2020 - General Info Date of Service: 04/22/20 - Patient Data Vitals - Most Recent: Last Vital Signs Temp 36.5 C 04/22/20 06:25 Pulse 71 04/22/20 06:25 Resp 14 04/22/20 06:25 BP 127/89 04/22/20 06:25 Pulse Ox 98 04/22/20 06:25 Weight - Most Recent: 71.214 kg I&O - Last 24 Hours: Intake & Output 04/22/20 04/22/20 04/22/20 06:59 14:59 22:59 Intake Total 100 Balance 100 Lab Results Last 24 Hours: Laboratory Results - last 24 hr 04/22/20 04/22/20 04/22/20 Range/Units 06:34 06:50 06:50 WBC 10.50 H (3.98-10.04) K/mm3 RBC 4.26 (3.98-5.22) M/mm3 Hgb 13.2 (11.2-15.7) gm/dl Hct 38.9 (34.1-44.9) % MCV 91.3 (79.4-94.8) fl MCH 31.0 (25.6-32.2) pg MCHC 33.9 (32.2-35.5) g/dl RDW Std Deviation 41.9 (36.4-46.3) fL Plt Count 192 (182-369) K/mm3 MPV 12.1 (9.4-12.3) fl Neut % (Auto) 70.3 (34.0-71.1) % Lymph % (Auto) 21.0 (19.3-51.7) % [place] % (Auto) 6.7 (4.7-12.5) % Eos % (Auto) 1.4 (0.7-5.8) Baso % (Auto) 0.4 (0.1-1.2) % Neut # (Auto) 7.38 H (1.56-6.13) K/mm3 Lymph # (Auto) 2.21 (1.18-3.74) K/mm3 [place] # (Auto) 0.70 H (0.24-0.36) K/mm3 Eos # (Auto) 0.15 (0.04-0.36) K/mm3 Baso # (Auto) 0.04 (0.01-0.08) K/mm3 Sodium 137 (136-145) mEq/L Potassium 3.6 (3.5-5.1) mEq/L Chloride 103 (98-107) mEq/L Carbon Dioxide 22 (21-32) mEq/L Anion Gap 15.6 H (5-15) BUN 10 (7-18) mg/dL Creatinine 0.8 (0.55-1.02) mg/dL Est Cr Clr Drug Dosing 104.67 mL/min Estimated GFR (MDRD) > 60 (>60) mL/min BUN/Creatinine Ratio 12.5 L (14-18) Glucose 74 (74-106) mg/dL Calcium 8.9 (8.5-10.1) mg/dL Total Bilirubin 1.0 (0.2-1.0) mg/dL AST 22 (15-37) U/L ALT 19 (14-59) U/L Alkaline Phosphatase 121 H (46-116) U/L Total Protein 7.0 (6.4-8.2) g/dl Albumin 3.0 L (3.4-5.0) g/dl Globulin 4.0 gm/dL Albumin/Globulin Ratio 0.8 L (1-2) Ur Random Creatinine < 13.0 L (30.0-125.0) mg/dL U Random Total Protein < 6.0 (0.0-11.8) mg/dL Protein/Creatinin Ratio TNP SARS-CoV-2 RNA (RT-PCR) (NEGATIVE) 04/22/20 Range/Units 12:15 WBC (3.98-10.04) K/mm3 RBC (3.98-5.22) M/mm3 Hgb (11.2-15.7) gm/dl Hct (34.1-44.9) % MCV (79.4-94.8) fl MCH (25.6-32.2) pg MCHC (32.2-35.5) g/dl RDW Std Deviation (36.4-46.3) fL Plt Count (182-369) K/mm3 MPV (9.4-12.3) fl Neut % (Auto) (34.0-71.1) % Lymph % (Auto) (19.3-51.7) % [place] % (Auto) (4.7-12.5) % Eos % (Auto) (0.7-5.8) Baso % (Auto) (0.1-1.2) % Neut # (Auto) (1.56-6.13) K/mm3 Lymph # (Auto) (1.18-3.74) K/mm3 [place] # (Auto) (0.24-0.36) K/mm3 Eos # (Auto) (0.04-0.36) K/mm3 Baso # (Auto) (0.01-0.08) K/mm3 Sodium (136-145) mEq/L Potassium (3.5-5.1) mEq/L Chloride (98-107) mEq/L Carbon Dioxide (21-32) mEq/L Anion Gap (5-15) BUN (7-18) mg/dL Creatinine (0.55-1.02) mg/dL Est Cr Clr Drug Dosing mL/min Estimated GFR (MDRD) (>60) mL/min BUN/Creatinine Ratio (14-18) Glucose (74-106) mg/dL Calcium (8.5-10.1) mg/dL Total Bilirubin (0.2-1.0) mg/dL AST (15-37) U/L ALT (14-59) U/L Alkaline Phosphatase (46-116) U/L Total Protein (6.4-8.2) g/dl Albumin (3.4-5.0) g/dl Globulin gm/dL Albumin/Globulin Ratio (1-2) Ur Random Creatinine (30.0-125.0) mg/dL U Random Total Protein (0.0-11.8) mg/dL Protein/Creatinin Ratio SARS-CoV-2 RNA (RT-PCR) Negative (NEGATIVE) Med Orders - Current: Current Medications Acetaminophen (Tylenol) 650 mg PO Q6H PRN PRN Reason: Pain Last Admin: 04/22/20 16:16 Dose: 650 mg Documented by: Lactated Ringer's (Ringers, Lactated) 1,000 mls @ 100 mls/hr IV ASDIRECTED JANUSZ Cefazolin Sodium/Dextrose 1 gm (/ Premix) 50 mls @ 100 mls/hr IV Q8H JANUSZ Oxytocin/Lactated Ringer's (Pitocin In Lr 10 Units/1,000 Ml) 10 unit in 1,000 mls @ 100 mls/hr IV .CONTINUOUS [facility] Levothyroxine Sodium (Levothyroxine) 112 mcg PO DAILY@0700 [facility] Levothyroxine Sodium (Levothyroxine) 25 mcg PO DAILY@0700 [facility] Nalbuphine HCl (Nubain) 10 mg IVPUSH Q2H PRN PRN Reason: Pain Sodium Chloride (Saline Flush) 10 ml FLUSH ASDIRECTED PRN PRN Reason: Keep Vein Open Discontinued Medications Cefazolin Sodium/Dextrose (Ancef) Confirm Administered Dose 2 gm IV .STK-MED ONE Stop: 04/22/20 11:29 Last Admin: 04/22/20 12:31 Dose: Not Given Documented by: Cefazolin Sodium/Dextrose 2 gm (/ Premix) 50 mls @ 100 mls/hr IV ONETIME ONE Stop: 04/22/20 12:00 Last Admin: 04/22/20 11:34 Dose: 100 mls/hr Documented by: Oxytocin/Lactated Ringer's (Pitocin In Lr 10 Units/1,000 Ml) Confirm Administered Dose 10 unit in 1,000 mls @ as directed IV .STK-MED ONE Stop: 04/22/20 18:39 Levothyroxine Sodium (Levothyroxine) 150 mcg PO ACBREAKFAST [facility] - Problem List & Annotations (1) 38 weeks gestation of SNOMED Code(s): 69744434 Code(s): Z3A.38 - 38 WEEKS GESTATION OF Status: Acute Current Visit: Yes (2) Hypothyroidism affecting SNOMED Code(s): 533595450 Code(s): O99.280 - ENDO, NUTRITIONAL AND METAB DISEASES COMP PREG, UNSP TRI; E03.9 - HYPOTHYROIDISM, UNSPECIFIED Status: Acute Current Visit: Yes (3) GBS (group B Streptococcus carrier), +RV culture, currently SNOMED Code(s): 9887839690369, 074247424, 8562144620577 Code(s): O99.820 - STREPTOCOCCUS B CARRIER STATE COMPLICATING Status: Acute Current Visit: No (4) Rh negative state in antepartum period SNOMED Code(s): 578692178 Code(s): O09.899 - SUPERVISION OF OTHER HIGH RISK PREGNANCIES, UNSP TRIMESTER Status: Acute Current Visit: No (5) Vaginal delivery SNOMED Code(s): 598657765 Code(s): O80 - ENCOUNTER FOR FULL-TERM UNCOMPLICATED DELIVERY Status: Acute Current Visit: No - Problem List Review Problem List Initiated/Reviewed/Updated: Yes - My Orders Last 24 Hours: My Active Orders 04/22/20 05:51 Non Stress Test [RC] PER UNIT ROUTINE Resuscitation Status Routine 04/22/20 06:58 RAPID PLASMA REAGIN,RPR [CHEM] Routine 04/22/20 11:31 Lactated Ringers [Ringers, Lactated] 1,000 ml IV ASDIRECTED Nalbuphine [Nubain] 10 mg IVPUSH Q2H PRN Oxytocin/Lactated Ringers [Pitocin in LR 10 Units/1,000 ML] 10 unit in 1,000 ml IV .CONTINUOUS Sodium Chloride 0.9% [Saline Flush] 10 ml FLUSH ASDIRECTED PRN 04/22/20 11:31 Heart Tones [RC] ASDIRECTED Notify Provider Vital Signs [RC] PRN Notify Provider [RC] PFP Notify Provider [RC] PRN Peripheral IV Care [RC] . DIRECTED Pump Management, Intrathecal [RC] ASDIRECTED Vital Signs [RC] PER UNIT ROUTINE Electronic Heart Tones Ext w TOCO [WOMSER] Routine Electronic Heart Tones Internal [WOMSER] Per Unit Routine Peripheral IV Insertion Adult [OM.PC] Routine 04/22/20 15:43 Acetaminophen [Tylenol] 650 mg PO Q6H PRN 04/22/20 19:19 Patient Status Manage Transfer [TRANSFER] Routine 04/22/20 20:00 ceFAZolin [Ancef] 1 gm Premix Bag 1 bag IV Q8H 04/23/20 07:00 Levothyroxine 112 mcg PO DAILY@0700 Levothyroxine 25 mcg PO DAILY@0700 - Plan Plan:: Admit to inpatient following normal spontaneous vaginal delivery Continue Pitocin per unit protocol following delivery of placenta and lactated Ringer's until tolerating regular diet Regular diet Vitals per unit routine Ibuprofen and Tylenol for pain control Assist with breast-feeding as needed Continue to monitor lochia Continue levothyroxine 137 mcg daily for hypothyroidism Follow-up on infant's blood type and transfuse RhoGam as indicated Anticipate discharge home on day #1 if infant ready for discharge Darien Allen MD 7:38 PM 04/22/2020
[2020-04-22] MEDS ORDERED: ceFAZolin 1 GM in Premix Bag 1 BAG IV SCH (20:00)
[2020-04-22] MEDS: Docusate Sodium 100 MG Cap PO PRN (20:29)
[2020-04-22] MEDS: Ibuprofen 600 MG Tab PO PRN (20:30)
[2020-04-23] MEDS: Acetaminophen 325 MG Tab PO PRN ×2 (00:47→06:17)
[2020-04-23] MEDS: Ibuprofen 600 MG Tab PO PRN ×3 (04:30→16:28)
[2020-04-23] MEDS ORDERED: Levothyroxine 150 MCG Tab PO SCH (06:00)
[2020-04-23] MEDS: Prenatal Multivitamin with Calcium/Folic Acid/Iron Tab PO SCH (08:46)
[2020-04-23] MEDS: Docusate Sodium 100 MG Cap PO PRN (08:46)
[2020-04-23] MEDS: Levothyroxine 25 MCG Tab PO SCH (08:47)
[2020-04-23] MEDS: Levothyroxine 112 MCG Tab PO SCH (08:48)
--- NOTE | 2020-04-23 09:45 | PCM.SN.2 ---
- Free Text/Narrative Note: Post Progress Note PPD #1 Subjective: Doing well overall. Ambulating without difficulty. Lochia minimal. Voiding without difficulty. Tolerating regular diet without nausea or vomiting. Pain controlled with oral medications. Reports that she has having increased amounts of cramping and abdominal pain with breast-feeding that is able to be moderately well controlled with Tylenol and ibuprofen. She is using a heating pad to help with some of this cramping pain as well. Breast-feeding with minimal dif ficulty. Objective: Vitals: Vital Signs - 24 hr 04/23/20 04/23/20 04/23/20 01:13 05:01 08:44 Temperature 36.8 C 36.5 C 36.9 C Pulse, 64 54 L 71 Peripheral Respiratory 15 15 16 Rate Blood Pressure 155/95 H 150/94 H 143/66 H O2 Sat by Pulse 99 96 99 Oximetry Physical Exam General: Alert and oriented, no acute distress Lungs: Clear to auscultation bilaterally Heart: Regular rate and rhythm Abdomen: Soft, minimal appropriate tenderness, non-distended, fundus midline, nontender, and 1 fingerbreadth below the umbilicus Extremities: No edema Laboratory Tests 04/22/20 04/22/20 04/22/20 Range/Units 06:34 06:50 06:50 WBC 10.50 H (3.98-10.04) K/mm3 RBC 4.26 (3.98-5.22) M/mm3 Hgb 13.2 (11.2-15.7) gm/dl Hct 38.9 (34.1-44.9) % MCV 91.3 (79.4-94.8) fl MCH 31.0 (25.6-32.2) pg MCHC 33.9 (32.2-35.5) g/dl RDW Std Deviation 41.9 (36.4-46.3) fL Plt Count 192 (182-369) K/mm3 MPV 12.1 (9.4-12.3) fl Neut % (Auto) 70.3 (34.0-71.1) % Lymph % (Auto) 21.0 (19.3-51.7) % [place] % (Auto) 6.7 (4.7-12.5) % Eos % (Auto) 1.4 (0.7-5.8) Baso % (Auto) 0.4 (0.1-1.2) % Neut # (Auto) 7.38 H (1.56-6.13) K/mm3 Lymph # (Auto) 2.21 (1.18-3.74) K/mm3 [place] # (Auto) 0.70 H (0.24-0.36) K/mm3 Eos # (Auto) 0.15 (0.04-0.36) K/mm3 Baso # (Auto) 0.04 (0.01-0.08) K/mm3 Sodium 137 (136-145) mEq/L Potassium 3.6 (3.5-5.1) mEq/L Chloride 103 (98-107) mEq/L Carbon Dioxide 22 (21-32) mEq/L Anion Gap 15.6 H (5-15) BUN 10 (7-18) mg/dL Creatinine 0.8 (0.55-1.02) mg/dL Est Cr Clr Drug Dosing 104.67 mL/min Estimated GFR (MDRD) > 60 (>60) mL/min BUN/Creatinine Ratio 12.5 L (14-18) Glucose 74 (74-106) mg/dL Calcium 8.9 (8.5-10.1) mg/dL Total Bilirubin 1.0 (0.2-1.0) mg/dL AST 22 (15-37) U/L ALT 19 (14-59) U/L Alkaline Phosphatase 121 H (46-116) U/L Total Protein 7.0 (6.4-8.2) g/dl Albumin 3.0 L (3.4-5.0) g/dl Globulin 4.0 gm/dL Albumin/Globulin Ratio 0.8 L (1-2) Ur Random Creatinine < 13.0 L (30.0-125.0) mg/dL U Random Total Protein < 6.0 (0.0-11.8) mg/dL Protein/Creatinin Ratio TNP RPR (NONREACTIVE) SARS-CoV-2 RNA (RT-PCR) (NEGATIVE) Blood Type Gel Antibody Screen Screen RhIG Candidate? Rhogam Indicated 04/22/20 04/22/20 04/22/20 Range/Units 06:58 12:15 22:26 WBC (3.98-10.04) K/mm3 RBC (3.98-5.22) M/mm3 Hgb (11.2-15.7) gm/dl Hct (34.1-44.9) % MCV (79.4-94.8) fl MCH (25.6-32.2) pg MCHC (32.2-35.5) g/dl RDW Std Deviation (36.4-46.3) fL Plt Count (182-369) K/mm3 MPV (9.4-12.3) fl Neut % (Auto) (34.0-71.1) % Lymph % (Auto) (19.3-51.7) % [place] % (Auto) (4.7-12.5) % Eos % (Auto) (0.7-5.8) Baso % (Auto) (0.1-1.2) % Neut # (Auto) (1.56-6.13) K/mm3 Lymph # (Auto) (1.18-3.74) K/mm3 [place] # (Auto) (0.24-0.36) K/mm3 Eos # (Auto) (0.04-0.36) K/mm3 Baso # (Auto) (0.01-0.08) K/mm3 Sodium (136-145) mEq/L Potassium (3.5-5.1) mEq/L Chloride (98-107) mEq/L Carbon Dioxide (21-32) mEq/L Anion Gap (5-15) BUN (7-18) mg/dL Creatinine (0.55-1.02) mg/dL Est Cr Clr Drug Dosing mL/min Estimated GFR (MDRD) (>60) mL/min BUN/Creatinine Ratio (14-18) Glucose (74-106) mg/dL Calcium (8.5-10.1) mg/dL Total Bilirubin (0.2-1.0) mg/dL AST (15-37) U/L ALT (14-59) U/L Alkaline Phosphatase (46-116) U/L Total Protein (6.4-8.2) g/dl Albumin (3.4-5.0) g/dl Globulin gm/dL Albumin/Globulin Ratio (1-2) Ur Random Creatinine (30.0-125.0) mg/dL U Random Total Protein (0.0-11.8) mg/dL Protein/Creatinin Ratio RPR Non-reactive (NONREACTIVE) SARS-CoV-2 RNA (RT-PCR) Negative (NEGATIVE) Blood Type O NEGATIVE Gel Antibody Screen Positive Screen 1 ros/5 flds - neg RhIG Candidate? Yes Rhogam Indicated Yes, baby rh pos H ASSESSMENT: 29-year-old female -0-1-3 s/p normal vaginal delivery PPD #1, complicated by gestational hypertension, Rh- status and received RhoGam on PPD #0 and hypothyroidism PLAN: Doing well Breast-feeding with minimal difficulty. Assist as needed Lochia minimal. Continue to monitor for appropriate lochia. Continue routine care Patient with O- blood type and with B+ blood type. Patient received RhoGam in the evening of day of delivery. Continue close monitoring of her blood pressures as she had several higher and mild range blood pressures. Blood pressure this morning was on the lower end of mild range. If she continues to have consistent blood pressures higher than 150/100 we will start patient on antihypertensive medication. Continue levothyroxine 137 mcg daily Anticipate discharge home tomorrow Darien Allen MD 9:45 AM 04/23/2020
[2020-04-24] MEDS: Levothyroxine 112 MCG Tab PO SCH (07:46)
[2020-04-24] MEDS: Levothyroxine 25 MCG Tab PO SCH (07:47)
[2020-04-24] MEDS: Prenatal Multivitamin with Calcium/Folic Acid/Iron Tab PO SCH (09:32)
--- NOTE | 2020-04-24 11:52 | PCM.SN.2 ---
- Free Text/Narrative Note: Post Progress Note PPD #2 Subjective: Doing well overall. Ambulating without difficulty. Lochia minimal. Voiding without difficulty. Tolerating regular diet without nausea or vomiting. Pain controlled. Reports that she cramping is improved at this time and is using only a heating pad for pain control. Breast-feeding with minimal difficulty. Denies any headaches, scotomata or epigastric pain. Objective: Vitals: Vital Signs - 24 hr 04/23/20 04/23/20 04/23/20 13:01 16:24 19:35 Temperature 36.8 C 36.4 C Pulse, 67 62 63 Peripheral Respiratory 14 16 15 Rate Blood Pressure 126/76 144/98 H 120/74 O2 Sat by Pulse 99 99 99 Oximetry 04/24/20 04/24/20 05:40 09:10 Temperature 36.6 C 36.8 C Pulse, 60 85 Peripheral Respiratory 15 14 Rate Blood Pressure 119/80 127/82 O2 Sat by Pulse 95 99 Oximetry Physical Exam General: Alert and oriented, no acute distress Lungs: Clear to auscultation bilaterally Heart: Regular rate and rhythm Abdomen: Soft, minimal appropriate tenderness, non-distended, fundus midline, nontender, and 1 fingerbreadth below the umbilicus Extremities: No edema ASSESSMENT: 29-year-old female -0-1-3 s/p normal vaginal delivery PPD #2, complicated by gestational hypertension, Rh- status and received RhoGam on PPD #0 and hypothyroidism PLAN: Doing well Breast-feeding with minimal difficulty. Assist as needed Lochia minimal. Continue to monitor for appropriate lochia. Continue routine care Patient with O- blood type and infant with B+ blood type. Patient received RhoGam in the evening of day of delivery. Continue close monitoring of her blood pressures as she had several higher and mild range blood pressures. Blood pressures improved overnight and continue to be normal range at this time. Patient to return to clinic for blood pressure check in 1 week Continue levothyroxine 137 mcg daily Discharge home today Darien Allen MD 11:49 AM 04/24/2020
--- NOTE | 2020-04-24 11:59 | PCM.DCSUM1 ---
Discharge Summary - Hospital Course Free Text/Narrative:: - General Info Date of Service: 04/22/20 Mother's Due Date: 05/06/20 - Delivery Note Labor: Spontaneous, Augmented by ARM Delivery Outcome: Livebirth Delivery Method: Spontaneous Vaginal Delivery-Single Presentation: Right Occiput Anterior (TRE) Nuchal Cord: None Prep: Povidone-Iodine (Betadine Anesthesia Type: None Amniotic Fluid Description: Clear Episiotomy Type: None Laceration: Labial (right labial abrasion, hemostatic and not repaired) Placenta: Intact, Spontaneous Cord: 3 Vessels, True Knot Estimated Blood Loss: 200 Resuscitation Needed: No : Bulb Syringe, Stimulated, Warmed, [place] Used Provider: Darien Allen Score 1 min: 8 Score 5 min: 9 Second Stage Interventions: Reports: Pushing, Stirrups/Leg Supports Delivery Comments (Free Text/Narrative):: Stage I: Radha Guzman was admitted for medically indicated induction of labor in the setting of gestational hypertension. On admission her cervix was dilated to 4 cm which was unchanged from late last week. She was GBS positive and was started on Ancef for GBS prophylaxis. She received 1 total dose prior to delivery. When she first presented she had elevated blood pressures into the 130s to 140s/90s to low 100s that were persistent over the course of 4 hours. Decision was made to proceed with induction of labor. She was sheryl irregularly which is what brought her in for evaluation. She was monitored with her contractions and was making appropriate change without any augmentation. She had artificial rupture of membranes with return of a small amount of clear fluid. She progressed to complete and pushing. Stage II: On 04/22/2020 she had a normal vaginal delivery of a live male infant at 18:52. Apgars of 8 & 9. Measurements not available at the time of the note. There was no nuchal cord. There was a true knot present in the cord at time of delivery. was delivered in TRE position. The cord was doubly clamped and cut by father the . was placed on mother's abdomen. Stage III: She had a spontaneous delivery of an intact placenta in Amandeep presentation. Three vessel cord. She was given pitocin and fundal massage. She had a right labial abrasion that was hemostatic and not repaired. Mom and baby were stable to recovery. EBL of 200 mL. HPI Initial Comments: - General Info Date of Service: 04/22/20 Mother's Due Date: 05/06/20 - Delivery Note Labor: Spontaneous, Augmented by ARM Delivery Outcome: Livebirth Infant Delivery Method: Spontaneous Vaginal Delivery-Single Presentation: Right Occiput Anterior (TRE) Nuchal Cord: None Prep: Povidone-Iodine (Betadine Anesthesia Type: None Amniotic Fluid Description: Clear Episiotomy Type: None Laceration: Labial (right labial abrasion, hemostatic and not repaired) Placenta: Intact, Spontaneous Cord: 3 Vessels, True Knot Estimated Blood Loss: 200 Resuscitation Needed: No : Bulb Syringe, Stimulated, Warmed, [place] Used Provider: Darien Allen Score 1 min: 8 Score 5 min: 9 Second Stage Interventions: Reports: Pushing, Stirrups/Leg Supports Delivery Comments (Free Text/Narrative):: Stage I: Radha Guzman was admitted for medically indicated induction of labor in the setting of gestational hypertension. On admission her cervix was dilated to 4 cm which was unchanged from late last week. She was GBS positive and was started on Ancef for GBS prophylaxis. She received 1 total dose prior to delivery. When she first presented she had elevated blood pressures into the 130s to 140s/90s to low 100s that were persistent over the course of 4 hours. Decision was made to proceed with induction of labor. She was sheryl irregularly which is what brought her in for evaluation. She was monitored with her contractions and was making appropriate change without any augmentation. She had artificial rupture of membranes with return of a small amount of clear fluid. She progressed to complete and pushing. Stage II: On 04/22/2020 she had a normal vaginal delivery of a live male at 18:52. Apgars of 8 & 9. Measurements not available at the time of the note. There was no nuchal cord. There was a true knot present in the cord at time of delivery. Infant was delivered in TRE position. The cord was doubly clamped and cut by father the . Infant was placed on mother's abdomen. Stage III: She had a spontaneous delivery of an intact placenta in Amandeep presentation. Three vessel cord. She was given pitocin and fundal massage. She had a right labial abrasion that was hemostatic and not repaired. Mom and baby were stable to recovery. EBL of 200 mL. Brief History: - General Info. Date of Service: 04/22/20. Mother's Due Date: 05/06/20. - Delivery Note. Labor: Spontaneous, Augmented by ARM. Delivery Outcome: Livebirth. Infant Delivery Method: Spontaneous Vaginal Delivery- Single. Presentation: Right Occiput Anterior (TRE). Nuchal Cord: None. Prep: Povidone-Iodine (Betadine. Anesthesia Type: None. Amniotic Fluid Description: Clear. Episiotomy Type: None. Laceration: Labial (right labial abrasion, hemostatic and not repaired). Placenta: Intact, Spontaneous. Cord: 3 Vessels, True Knot. Estimated Blood Loss: 200. Resuscitation Needed: No. : Bulb Syringe, Stimulated, Warmed, [place] Used. Provider: Darien Allen. Score 1 min: 8. Score 5 min: 9. Second Stage Interventions: Reports: Pushing, Stirrups/Leg Supports. Delivery Comments (Free Text/Narrative):: Stage I: Radha Guzman was admitted for medically indicated induction of labor in the setting of gestational hypertension. On admission her cervix was dilated to 4 cm which was unchanged from late last week. She was GBS positive and was started on Ancef for GBS prophylaxis. She received 1 total dose prior to delivery. When she first presented she had elevated blood pressures into the 130s to 140s/90s to low 100s that were persistent over the course of 4 hours. Decision was made to proceed with induction of labor. She was sheryl irregularly which is what brought her in for evaluation. She was monitored with her contractions and was making appropriate change without any augmentation. She had artificial rupture of membranes with return of a small amount of clear fluid. She progressed to complete and pushing. Stage II: On 04/22/2020 she had a normal vaginal delivery of a live male infant at 18:52. Apgars of 8 & 9. Measurements not available at the time of the note. There was no nuchal cord. There was a true knot present in the cord at time of delivery. was delivered in TRE position. The cord was doubly clamped and cut by father the infant. Infant was placed on mother's abdomen. Stage III: She had a spontaneous delivery of an intact placenta in Amandeep presentation. Three vessel cord. She was given pitocin and fundal massage. She had a right labial abrasion that was hemostatic and not repaired. Mom and baby were stable to recovery. EBL of 200 mL. Diagnosis: Stroke: No - Discharge Data Discharge Date: 04/24/20 Discharge Disposition: Home, Self-Care 01 Condition: Good - Referral to Home Health Primary Care Physician: Darien Allen MD - Discharge Diagnosis/Problem(s) (1) 38 weeks gestation of SNOMED Code(s): 60067482 ICD Code: Z3A.38 - 38 WEEKS GESTATION OF Status: Acute Current Visit: Yes (2) Hypothyroidism affecting SNOMED Code(s): 093574529 ICD Code: O99.280 - ENDO, NUTRITIONAL AND METAB DISEASES COMP PREG, UNSP TRI; E03.9 - HYPOTHYROIDISM, UNSPECIFIED Status: Acute Current Visit: Yes (3) GBS (group B Streptococcus carrier), +RV culture, currently SNOMED Code(s): 0718663926264, 570184854, 6532072171994 ICD Code: O99.820 - STREPTOCOCCUS B CARRIER STATE COMPLICATING Status: Acute Current Visit: No (4) Rh negative state in antepartum period SNOMED Code(s): 317422517 ICD Code: O09.899 - SUPERVISION OF OTHER HIGH RISK PREGNANCIES, UNSP TRIMESTER Status: Acute Current Visit: No (5) Vaginal delivery SNOMED Code(s): 780550266 ICD Code: O80 - ENCOUNTER FOR FULL-TERM UNCOMPLICATED DELIVERY Status: Acute Current Visit: No (6) Gestational hypertension SNOMED Code(s): 621985586 ICD Code: O13.9 - GESTATIONAL HTN W/O SIGNIFICANT PROTEINURIA, UNSP TRIMESTER Status: Acute Current Visit: Yes - Patient Summary/Data Complications: None Consults: None Hospital Course: Radha Guzman was admitted for spontaneous labor as well as gestational hypertension. On admission her cervix was dilated to 4 cm. She was GBS positive and was started on Ancef for GBS prophylaxis. She received 1 dose prior to delivery. She had artificial rupture of membranes with a small amount of clear fluid. She progressed to complete and began pushing. On 04/22/2020 she had a normal vaginal delivery of a live male at 18:52. Apgars of 8 and 9. Weight of 2920 g (6 pounds 7.0 ounces). Her course was uneventful. Her pain was well controlled and she had minimal lochia. She was ambulating, tolerating a regular diet and voiding normally. She was breast- feeding with minimal difficulty. Her blood pressures improved into normal range over the course of the next several days and were normal range by the time she was discharged on PPD #2. She was afebrile and her hematocrit was 38.9 on admission. She desired to be discharged home on the morning of PPD #2. Her blood type is O- and has B+ blood type. She was given RhoGam in the evening of day of delivery. - Patient Instructions Diet: Regular Diet as Tolerated Activity: Apply Ice, As Tolerated Activity, Other: Nothing in the vagina for 6 weeks Driving: May Drive Today Showering/Bathing: May Shower Notify Provider of: Fever, Increased Pain, Swelling and Redness, Drainage, Nausea and/or Vomiting Other/Special Instructions: Please contact your physician's office if you have heavy vaginal bleeding enough to soak a pad in less than an hour for several hours. Monitor for any signs of an infection in the breasts with severe pain or redness of the breast. Monitor for signs of worsening blood pressures or preeclampsia with severe headaches, spots or flashes of light in your vision, or pain in your upper abdomen or stomach. - Discharge Plan *PRESCRIPTION DRUG MONITORING PROGRAM REVIEWED*: Not Applicable *COPY OF PRESCRIPTION DRUG MONITORING REPORT IN PATIENT MIGUEL: Not Applicable Home Medications: Home Meds Levothyroxine [Synthroid] 100 mcg PO ACBREAKFAST 05/06/19 [History] No122/Iron/Folic Acid [ Multi Tablet] 1 each PO DAILY 05/06/19 [History] Acetaminophen [Tylenol] 650 mg PO Q6H PRN tablet 04/24/20 [Rx] Benzocaine/Menthol [Dermoplast Pain Relief [place]] 1 spray TOP ASDIRECTED PRN canister 04/24/20 [Rx] Docusate Sodium [Colace] 100 mg PO BID PRN cap 04/24/20 [Rx] Hydrocortisone Acetate [Anucort-HC] 25 mg RECTAL BID PRN supp 04/24/20 [Rx] Ibuprofen [Motrin] 600 mg PO Q6H PRN tablet 04/24/20 [Rx] colin Goff [Tucks] 1 pad TOP ASDIRECTED PRN pad 04/24/20 [Rx] Patient Handouts: Care of a Perineal Tear, Care After Vaginal Delivery, Rh Incompatibility Referrals: Darien Allen MD [Primary Care Provider] - (Follow-up on 05/01 or 05/02/2020 for routine visit and blood pressure check or earlier as needed.) - Discharge Summary/Plan Comment DC Time >30 min.: No - Patient Data Vitals - Most Recent: Last Vital Signs Temp 36.8 C 04/24/20 09:10 Pulse 85 04/24/20 09:10 Resp 14 04/24/20 09:10 BP 127/82 04/24/20 09:10 Pulse Ox 99 04/24/20 09:10 Weight - Most Recent: 71.214 kg I&O - Last 24 hours: Intake & Output 04/23/20 04/24/20 04/24/20 22:59 06:59 14:59 Intake Total 0 0 Balance 0 0 Med Orders - Current: Current Medications Acetaminophen (Tylenol) 650 mg PO Q6H PRN PRN Reason: mild pain or fever Last Admin: 04/23/20 06:17 Dose: 650 mg Documented by: Benzocaine/Menthol (Dermoplast Pain Relief [place]) 0 gm TOP ASDIRECTED PRN PRN Reason: Perineal Comfort Measure Last Admin: 04/22/20 20:28 Dose: 1 applic Documented by: Docusate Sodium (Colace) 100 mg PO BID PRN PRN Reason: Constipation Last Admin: 04/23/20 08:46 Dose: 100 mg Documented by: Hydrocortisone Acetate (Anucort-Hc) 25 mg RECTAL BID PRN PRN Reason: Hemorrhoid pain Oxytocin/Lactated Ringer's (Pitocin In Lr 10 Units/1,000 Ml) 10 unit in 1,000 mls @ 100 mls/hr IV TITRATE [facility]; Protocol Ibuprofen (Motrin) 600 mg PO Q6H PRN PRN Reason: Mild pain or fever Last Admin: 04/23/20 16:28 Dose: 600 mg Documented by: Levothyroxine Sodium (Levothyroxine) 112 mcg PO DAILY@0700 [facility] Last Admin: 04/24/20 07:46 Dose: Not Given Documented by: Levothyroxine Sodium (Levothyroxine) 25 mcg PO DAILY@0700 [facility] Last Admin: 07/06/20 07:47 Dose: Not Given Documented by: Magnesium Hydroxide (Milk Of Magnesia) 30 ml PO BEDTIME PRN PRN Reason: Constipation Prenat Multivit/[place]/Iron/Folic Ac ( Plus Iron) 1 each PO DAILY JANUSZ Last Admin: 04/24/20 09:32 Dose: 1 each Documented by: Colin Goff ([facility]) 1 pad TOP ASDIRECTED PRN PRN Reason: Perineal Comfort Measure Last Admin: 04/22/20 20:29 Dose: 1 tub Documented by: Discontinued Medications Acetaminophen (Tylenol) 650 mg PO Q6H PRN PRN Reason: Pain Last Admin: 04/22/20 16:16 Dose: 650 mg Documented by: Cefazolin Sodium/Dextrose (Ancef) Confirm Administered Dose 2 gm IV .STK-MED ONE Stop: 04/22/20 11:29 Last Admin: 04/22/20 12:31 Dose: Not Given Documented by: Lactated Ringer's (Ringers, Lactated) 1,000 mls @ 100 mls/hr IV ASDIRECTED [facility] Cefazolin Sodium/Dextrose 2 gm (/ Premix) 50 mls @ 100 mls/hr IV ONETIME ONE Stop: 04/22/20 12:00 Last Admin: 04/22/20 11:34 Dose: 100 mls/hr Documented by: Cefazolin Sodium/Dextrose 1 gm (/ Premix) 50 mls @ 100 mls/hr IV Q8H JANUSZ Oxytocin/Lactated Ringer's (Pitocin In Lr 10 Units/1,000 Ml) 10 unit in 1,000 mls @ 100 mls/hr IV .CONTINUOUS JANUSZ Last Admin: 04/22/20 20:26 Dose: 500 mls/hr Documented by: Oxytocin/Lactated Ringer's (Pitocin In Lr 10 Units/1,000 Ml) Confirm Administered Dose 10 unit in 1,000 mls @ as directed IV .STK-MED ONE Stop: 04/22/20 18:39 Last Admin: 04/23/20 01:41 Dose: Not Given Documented by: Levothyroxine Sodium (Levothyroxine) 150 mcg PO ACBREAKFAST JANUSZ Nalbuphine HCl (Nubain) 10 mg IVPUSH Q2H PRN PRN Reason: Pain Sodium Chloride (Saline Flush) 10 ml FLUSH ASDIRECTED PRN PRN Reason: Keep Vein Open
[2020-04-24 17:04] VITALS: BP 118/73; PULSE 82
== END 2020-04-24 16:00 | disposition home or self-care (01) | DRG 560 ==
LOC: JD.OB 05:40 → JD.OBCHECK 05:40 → JD.OB 11:11 → OBSVTOIN 18:52 → JD.OB 18:52
PROVIDERS: ADMIT Obstetrics & Gynecology; ATTEND Obstetrics & Gynecology
PROC: 10E0XZZ Delivery of Products of Conception, External Approach (ICD-10-PCS; principal; 2020-04-22)
PROC: 10907ZC Drainage of Amniotic Fluid, Therapeutic from Products of Conception, Via Natural or Artificial Opening (ICD-10-PCS; 2020-04-22)
DX: O99.824 Streptococcus B carrier state complicating childbirth (principal); Z3A.38 38 weeks gestation of pregnancy; Z37.0 Single live birth; O13.4 Gestational [pregnancy-induced] hypertension without significant proteinuria, complicating childbirth; O99.284 Endocrine, nutritional and metabolic diseases complicating childbirth; E03.9 Hypothyroidism, unspecified; O26.893 Other specified pregnancy related conditions, third trimester; Z67.41 Type O blood, Rh negative
CPT/HCPCS: 36415; 36430; 59025; 59409; 80053; 82570; 84156; 85025; 86592; A9270-GY; J0690; J2590; J2790; U0002

== ENCOUNTER 2020-11-16 14:57 | Emergency (ER) | payer BC ==
[2020-11-16] MEDS ORDERED: Sodium Chloride 0.9% 10 ML Syringe FLUSH PRN (15:20)
[2020-11-16] MEDS ORDERED: Sodium Chloride 0.9% 1,000 ML IV STA ×2 (15:22→16:01)
[2020-11-16] MEDS ORDERED: Ondansetron 4 MG/2 ML SDV IVPUSH ONE (15:22)
--- NOTE | 2020-11-16 15:28 | EDM.PDOC ---
ED HPI GENERAL MEDICAL PROBLEM - General Chief Complaint: Gastrointestinal Problem Stated Complaint: VOMITING/DIARRHEA X 8 HRS Time Seen by Provider: 11/16/20 14:58 Source of Information: Reports: Patient, RN Notes Reviewed History Limitations: Reports: No Limitations - History of Present Illness INITIAL COMMENTS - FREE TEXT/NARRATIVE: Patient is a 30-year-old female presenting to the emergency department with complaints of an 8-hour history of vomiting and diarrhea. She states that she is having watery diarrhea approximately 3 times per hour and states that she goes a large amount of watery diarrhea each time. She is vomiting about every 30 minutes, however at this point she is dry heaving. She is unable to keep any fluids down. She denies any abdominal pain. She does have cramping in her lower extremities and hands. Patient states that her oldest daughter was sick with similar symptoms last week, and today she had to pick her youngest daughter up from school because she was vomiting as well. She denies any known fever but occasionally does feel chilled. Denies any respiratory symptoms. Bilateral Leg Pain Score (Numeric/FACES): 7 - Related Data Allergies Allergy/AdvReac Type Severity Reaction Status Date / Time Penicillins Allergy Hives Verified 11/16/20 15:08 Home Meds: Home Meds Levothyroxine [Synthroid] 117 mcg PO ACBREAKFAST 05/06/19 [History] No122/Iron/Folic Acid [ Multi Tablet] 1 each PO DAILY 05/06/19 [History] Acetaminophen [Tylenol] 650 mg PO Q6H PRN tablet 04/24/20 [Rx] Ibuprofen [Motrin] 600 mg PO Q6H PRN tablet 04/24/20 [Rx] Ondansetron [Zofran ODT] 4 mg PO Q6H PRN #20 tab.dis 11/16/20 [Rx] Past Medical History - Past Health History Medical/Surgical History: Denies 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: , Spontaneous Neurological History: Reports: Migraines Endocrine/Metabolic History: Reports: Hypothyroidism - Infectious Disease History Infectious Disease History: Reports: Chicken Pox - Past Surgical History HEENT Surgical History: Reports: Oral Surgery Social & Family History - Family History Family Medical History: No Pertinent Family History Cardiac: Reports: Hypertension Endocrine/Metabolic: Reports: Hypothyroidism - Tobacco Use Tobacco Use Status *Q: Never Tobacco User - Caffeine Use Caffeine Use: Reports: None - Recreational Drug Use Recreational Drug Use: No ED ROS GENERAL - Review of Systems Review Of Systems: See Below Constitutional: Reports: Chills, Decreased Appetite. Denies: Fever HEENT: Reports: No Symptoms Respiratory: Reports: No Symptoms Cardiovascular: Reports: No Symptoms Endocrine: Reports: No Symptoms GI/Abdominal: Reports: Diarrhea, Nausea, Vomiting. Denies: Abdominal Pain : Reports: No Symptoms Musculoskeletal: Reports: No Symptoms Skin: Reports: No Symptoms Neurological: Reports: No Symptoms Psychiatric: Reports: No Symptoms Hematologic/Lymphatic: Reports: No Symptoms Immunologic: Reports: No Symptoms ED EXAM, GI/ABD - Physical Exam Exam: See Below Exam Limited By: No Limitations General Appearance: Alert, WD/WN, No Apparent Distress Throat/Mouth: Other (dry mucous membranes) Respiratory/Chest: No Respiratory Distress, Lungs Clear, Normal Breath Sounds, No Accessory Muscle Use, Chest Non-Tender Cardiovascular: Normal Peripheral Pulses, Regular Rate, Rhythm, No Edema, No Gallop, No JVD, No Murmur, No Rub GI/Abdominal Exam: Normal Bowel Sounds, Soft, Non-Tender, No Organomegaly, No Distention, No Abnormal Bruit, No Mass, Pelvis Stable Neurological: Alert, Oriented, CN II-XII Intact, Normal Cognition, Normal Gait, Normal Reflexes, No Motor/Sensory Deficits Psychiatric: Normal Affect, Normal Mood Skin Exam: Warm, Dry, Intact, Normal Color, No Rash Course - Vital Signs Last Recorded V/S: Last Vital Signs Temp 97.1 F 11/16/20 15:09 Pulse 91 11/16/20 18:00 Resp 18 11/16/20 18:00 BP 121/74 11/16/20 18:00 Pulse Ox 96 11/16/20 18:00 Orthostatic Blood Pressure [ 117/81 Standing] Orthostatic Blood Pressure [ 120/80 Sitting] Orthostatic Blood Pressure [ 117/82 Supine] - Orders/Labs/Meds Orders: Active Orders 24 hr Category Date Time Status Peripheral IV Insertion Adult [OM.PC] Stat Oth 11/16/20 15:20 Ordered Labs: Laboratory Tests 11/16/20 11/16/20 11/16/20 Range/Units 15:20 15:20 16:00 WBC 19.69 H (3.98-10.04) K/mm3 RBC 5.85 H (3.98-5.22) M/mm3 Hgb 16.8 H D (11.2-15.7) gm/dl Hct 49.1 H (34.1-44.9) % MCV 83.9 D (79.4-94.8) fl MCH 28.7 (25.6-32.2) pg MCHC 34.2 (32.2-35.5) g/dl RDW Std Deviation 36.7 (36.4-46.3) fL Plt Count 239 (182-369) K/mm3 MPV 11.2 (9.4-12.3) fl Neut % (Auto) 93.2 H (34.0-71.1) % Lymph % (Auto) 2.0 L (19.3-51.7) % [place] % (Auto) 4.3 L (4.7-12.5) % Eos % (Auto) 0.1 L (0.7-5.8) Baso % (Auto) 0.2 (0.1-1.2) % Neut # (Auto) 18.38 H (1.56-6.13) K/mm3 Lymph # (Auto) 0.39 L (1.18-3.74) K/mm3 [place] # (Auto) 0.85 H (0.24-0.36) K/mm3 Eos # (Auto) 0.01 L (0.04-0.36) K/mm3 Baso # (Auto) 0.03 (0.01-0.08) K/mm3 Manual Slide Review Abnormal smear Sodium 141 (136-145) mEq/L Potassium 4.3 (3.5-5.1) mEq/L Chloride 101 (98-107) mEq/L Carbon Dioxide 21 (21-32) mEq/L Anion Gap 23.3 H (5-15) BUN 18 (7-18) mg/dL Creatinine 1.2 H (0.55-1.02) mg/dL Est Cr Clr Drug Dosing 66.27 mL/min Estimated GFR (MDRD) 53 (>60) mL/min BUN/Creatinine Ratio 15.0 (14-18) Glucose 137 H (74-106) mg/dL Calcium 10.6 H D (8.5-10.1) mg/dL Magnesium 1.7 L (1.8-2.4) mg/dl Total Bilirubin 2.5 H (0.2-1.0) mg/dL AST 16 (15-37) U/L ALT 22 (14-59) U/L Alkaline Phosphatase 116 (46-116) U/L C-Reactive Protein <0.2 (<1.0) mg/dL Total Protein 9.6 H (6.4-8.2) g/dl Albumin 5.5 H (3.4-5.0) g/dl Globulin 4.1 gm/dL Albumin/Globulin Ratio 1.3 (1-2) Urine Color Dark yellow (Yellow) Urine Appearance Slt cloudy H (Clear) Urine pH 6.0 (5.0-8.0) Ur Specific [place] > or = 1.030 (1.005-1.030) Urine Protein 2+ H (Negative) Urine Glucose (UA) Negative (Negative) Urine Ketones 4+ H (Negative) Urine Occult Blood Trace-lysed H (Negative) Urine Nitrite Negative (Negative) Urine Bilirubin 2+ H (Negative) Urine Urobilinogen 0.2 (0.2-1.0) Ur Leukocyte Esterase Negative (Negative) U Hyaline Cast (Auto) 5-10 H (0-5) /lpf Urine RBC 0-5 (0-5) /hpf Urine WBC 0-5 (0-5) /hpf Ur Epithelial Cells 0-5 (0-5) /hpf Urine Bacteria Few (FEW) /hpf Urine Mucus Many H (FEW) /hpf Meds: Medications Discontinued Medications Generic Name Dose Route Start Last Admin Trade Name Ranjith PRN Reason Stop Dose Admin Sodium Chloride 1,000 mls @ 999 mls/hr 11/16/20 15:22 11/16/20 15:28 Normal Saline IV 11/16/20 16:22 999 mls/hr NOW STA Administration Sodium Chloride 1,000 mls @ 999 mls/hr 11/16/20 16:01 11/16/20 16:29 Normal Saline IV 11/16/20 17:01 Not Given NOW STA Lactated Ringer's 1,000 mls @ 999 mls/hr 11/16/20 16:02 11/16/20 16:06 Ringers, Lactated IV 11/16/20 17:02 999 mls/hr .BOLUS ONE Administration Lactated Ringer's 1,000 mls @ 999 mls/hr 11/16/20 16:30 11/16/20 16:33 Ringers, Lactated IV 999 mls/hr ASDIRECTED JANUSZ Administration Ondansetron HCl 4 mg 11/16/20 15:22 11/16/20 15:28 Zofran IVPUSH 11/16/20 15:23 4 mg ONETIME ONE Administration Sodium Chloride 10 ml 11/16/20 15:20 11/16/20 15:28 Saline Flush FLUSH 10 ml ASDIRECTED PRN Administration Keep Vein Open - Re-Assessments/Exams Free Text/Narrative Re-Assessment/Exam: 11/16/20 16:44 Hematology indicates that the patient is very dehydrated. WBCs elevated at 19.69, hemoglobin elevated at 16.8, anion gap elevated at 23.3, creatinine 1.2, magnesium 1.7, total bili 2.5. Urinalysis shows 2+ protein, 4+ ketones, 2+ bili. It is negative for nitrites and leukocyte esterase. Nursing staff reports that she was only able to produce a very small amount of urine for urinalysis. Patient states that she does spoke to her and that he is also feeling sick. She continues to deny any abdominal pain and has had no respiratory symptoms. The elevation in her WBCs is likely a stress response combined with excessive dehydration. We have no source of infection that would indicate otherwise and she has family members with known gastroenteritis. I have ordered a total of 3 L of IV fluids, 2 L of LR and 1 L of NS. She has received approximately 2 L of the fluid thus far and is feeling much better. Respiratory rate has returned to normal. She has had no further episodes of vomiting, however she states when she walked to the bathroom she did feel mildly nauseous. 11/16/20 17:50 Patient is feeling much better after 3 L of IV fluids. She has been drinking Powerade and has been able to keep it down without vomiting. Respiratory rate has normalized at 18 and she states that she is no longer having cramping of her extremities. I will send a prescription for Zofran to [facility]. Recommend clear liquid diet. Discussed return precautions. Discharge instructions as documented. Departure - Departure Time of Disposition: 17:50 Disposition: Home, Self-Care 01 Condition: Good Clinical Impression: Viral gastroenteritis - Discharge Information *PRESCRIPTION DRUG MONITORING PROGRAM REVIEWED*: No *COPY OF PRESCRIPTION DRUG MONITORING REPORT IN PATIENT MIGUEL: No Prescriptions: Ondansetron [Zofran ODT] 4 mg PO Q6H PRN #20 tab.dis PRN Reason: Nausea/Vomiting Instructions: Viral Gastroenteritis, Adult, [id number] Referrals: Darien Allen MD [Primary Care Provider] - Forms: ED Department Discharge Additional Instructions: You were seen in the emergency department today for vomiting and diarrhea for the past 8 hours. Blood work was completed and showed that you are significantly dehydrated. While in the ER, you received 3 L of IV fluids as well as Zofran for nausea. This did improve your symptoms and you were able to keep down oral fluids. A prescription for Zofran has been sent to [facility]. Take this medication as prescribed. Recommend clear liquid diet for the next 24 to 72 hours and then advance as tolerated. Avoid dairy products and fruit juices until symptoms have resolved completely. If your symptoms should worsen to where you are unable to keep liquids down again, please not hesitate to return to the emergency department for reevaluation. Sepsis Event Note (ED) - Evaluation Sepsis Screening Result: No Definite Risk - Focused Exam Vital Signs: Vital Signs Temp Pulse Resp BP Pulse Ox 11/16/20 18:00 91 18 121/74 96 11/16/20 17:07 91 18 116/71 99 11/16/20 16:12 74 25 H 114/70 100 11/16/20 15:09 97.1 F 78 35 H 117/82 100 - My Orders Last 24 Hours: My Active Orders 11/16/20 15:20 Peripheral IV Insertion Adult [OM.PC] Stat - Assessment/Plan Last 24 Hours: My Active Orders 11/16/20 15:20 Peripheral IV Insertion Adult [OM.PC] Stat
[2020-11-16] MEDS ORDERED: Lactated Ringers 1,000 ML IV ONE (16:02)
[2020-11-16] MEDS ORDERED: Lactated Ringers 1,000 ML IV SCH (16:30)
[2020-11-16 17:08] VITALS: PULSE 91
[2020-11-16 18:06] VITALS: BP 121/74
== END 2020-11-16 18:02 | disposition home or self-care (01) ==
LOC: JD.ED 14:57
DX: A08.4 Viral intestinal infection, unspecified (principal); E03.9 Hypothyroidism, unspecified; Z88.0 Allergy status to penicillin; Z79.899 Other long term (current) drug therapy
CPT/HCPCS: 36415; 80053; 81001; 83735; 85025; 86140; 96374; 99284; J2405; J7030; J7120; 99283

== ENCOUNTER 2022-09-03 01:23 | Inpatient (IN) | payer BC ==
[2022-09-03] MEDS ORDERED: Nalbuphine HCl 10 MG/ 1ML Amp IVPUSH PRN (02:05)
[2022-09-03] MEDS ORDERED: Ondansetron 4 MG/2 ML SDV IVPUSH PRN (02:05)
[2022-09-03] MEDS ORDERED: Sodium Chloride 0.9% 10 ML Syringe FLUSH PRN (02:05)
[2022-09-03] MEDS ORDERED: Lactated Ringers 1,000 ML IV SCH (02:15)
[2022-09-03] MEDS ORDERED: Oxytocin/Lactated Ringers 10 UNIT/1,000 ML BAG IV SCH (02:15)
[2022-09-03] MEDS ORDERED: Clindamycin Phosphate in D5W 900 MG in Premix Bag 1 BAG IV SCH ×2 (02:15)
[2022-09-03] MEDS ORDERED: Lidocaine 1% 50 ML MDV ONE (03:18)
[2022-09-03] MEDS ORDERED: Benzocaine/Menthol 20%-0.5% Spray 78 GM Cannister TOP PRN (04:30)
[2022-09-03] MEDS ORDERED: Witch Hazel Medicated Pads 40/Jar TOP PRN (04:30)
[2022-09-03] MEDS ORDERED: Docusate Sodium 100 MG Cap PO PRN (04:30)
[2022-09-03] MEDS: Ibuprofen 600 MG Tab PO PRN ×5 (04:46→23:54)
[2022-09-03] MEDS: Levothyroxine 100 MCG Tab PO SCH ×2 (06:05→06:51)
[2022-09-03] MEDS: Acetaminophen 325 MG Tab PO PRN ×4 (06:05→19:49)
[2022-09-03] MEDS: Prenatal Multivitamin with Calcium/Folic Acid/Iron Tab PO SCH (08:48)
[2022-09-03] MEDS ORDERED: Sodium Chloride 0.9% 10 ML Syringe FLUSH SCH (09:00)
[2022-09-04] MEDS: Levothyroxine 25 MCG Tab PO SCH (05:59)
[2022-09-04] MEDS: Levothyroxine 112 MCG Tab PO SCH (05:59)
[2022-09-04] MEDS: Prenatal Multivitamin with Calcium/Folic Acid/Iron Tab PO SCH ×2 (07:49→15:58)
[2022-09-04] MEDS: Ibuprofen 600 MG Tab PO PRN ×2 (07:49→21:24)
[2022-09-05] MEDS: Ibuprofen 600 MG Tab PO PRN (01:54)
[2022-09-05] MEDS: Levothyroxine 25 MCG Tab PO SCH (06:01)
[2022-09-05] MEDS: Levothyroxine 112 MCG Tab PO SCH (06:01)
[2022-09-05] MEDS: Prenatal Multivitamin with Calcium/Folic Acid/Iron Tab PO SCH (09:40)
[2022-09-05 11:01] VITALS: BP 117/83; PULSE 81
== END 2022-09-05 12:38 | disposition home or self-care (01) | DRG 560 ==
LOC: JD.OBCHECK 01:23 → JD.OB 01:26 → JD.OBCHECK 02:19 → JD.OB 02:20 → OBSVTOIN 03:16 → JD.OB 09:12
PROVIDERS: ADMIT Obstetrics & Gynecology; ATTEND Obstetrics & Gynecology
PROC: 10E0XZZ Delivery of Products of Conception, External Approach (ICD-10-PCS; principal; 2022-09-03)
PROC: 0KQM0ZZ Repair Perineum Muscle, Open Approach (ICD-10-PCS; 2022-09-03)
PROC: 3E0334Z Introduction of Serum, Toxoid and Vaccine into Peripheral Vein, Percutaneous Approach (ICD-10-PCS; 2022-09-03)
DX: O99.284 Endocrine, nutritional and metabolic diseases complicating childbirth (principal); Z3A.39 39 weeks gestation of pregnancy; Z37.0 Single live birth; O99.354 Diseases of the nervous system complicating childbirth; G43.909 Migraine, unspecified, not intractable, without status migrainosus; O99.824 Streptococcus B carrier state complicating childbirth; Z3A.38 38 weeks gestation of pregnancy; O70.1 Second degree perineal laceration during delivery; O26.893 Other specified pregnancy related conditions, third trimester; Z67.41 Type O blood, Rh negative; Z79.890 Hormone replacement therapy; Z88.0 Allergy status to penicillin
CPT/HCPCS: 36415; 59025; 59409; 85025; 85461; 86592; 86850; 86870; 86900; 86901; A9270-GY; J2001; J2790; J7120

== ENCOUNTER 2023-01-13 19:08 | Emergency (ER) | payer BC ==
[2023-01-13] MEDS ORDERED: Sodium Chloride 0.9% 10 ML Syringe FLUSH PRN (19:35)
[2023-01-13] MEDS ORDERED: Sodium Chloride 0.9% 1,000 ML IV STA (19:35)
[2023-01-13] MEDS ORDERED: Ondansetron 4 MG/2 ML SDV IVPUSH ONE (19:35)
[2023-01-13] MEDS ORDERED: HYDROmorphone 0.5 MG/0.5 ML Syringe IVPUSH ONE (19:37)
[2023-01-13] MEDS ORDERED: Sodium Chloride 0.9% 1,000 ML IV ONE (20:59)
[2023-01-13] MEDS ORDERED: Iopamidol 612 MG/ML 100 ML Bottle IVPUSH ONE (22:17)
[2023-01-13 23:01] VITALS: BP 127/88; PULSE 72
== END 2023-01-13 22:55 | disposition home or self-care (01) ==
LOC: JD.ED 19:08
DX: A08.4 Viral intestinal infection, unspecified (principal); E03.9 Hypothyroidism, unspecified; Z88.0 Allergy status to penicillin; Z79.899 Other long term (current) drug therapy
CPT/HCPCS: 36415; 74177; 80053; 81001; 83690; 84703; 85025; 96361; 96374; 96375; 99284; J1170; J2405; J3490; J7030; Q9967